=== PATIENT | male | born 1980 | race Caucasian/White ===

== ENCOUNTER 2018-03-14 08:01 | Emergency (ER) | payer MEDICAID, SELFPAY ==
[2018-03-14] VITALS (23 sets, daily range): BP systolic 103–140; BP diastolic 66–92; PULSE 73–110; RESP 14–29; TEMP 36.4; O2SAT 90–98
--- NOTE | 2018-03-14 08:10 | DI.RAD_ITS ---
SYMPTOM/DIAGNOSIS: FALL, RIGHT CP OVER RIBS 6-8 LATERAL PA AND LATERAL CHEST: 03/13/18 The heart is normal in size. The lungs are clear. The mediastinal structures and pleura appear intact. Note is made of right 5th rib fracture anteriorly and right 8th rib fracture laterally, nondisplaced, no pneumothorax seen. CONCLUSION: Normal chest.
--- NOTE | 2018-03-14 08:12 | W.ED.GENAD ---
Discharge Plan Disposition Patient Disposition: HOME Condition: Good Discharge Details Chief Complaint: Trauma Clinical Impression: Closed fracture of rib of right side Primary Care Provider: Gabriela Valerio ED Provider: [facility] Home Meds and New Rx's Prescriptions: New acetaminophen [Mapap Extra Strength] 500 MG tablet 1,000 mg PO Q6H 5 Days Qty: 60 RF: 0 lidocaine [Lidoderm] 1 PATCH patch 1 patch Topical Q24H Qty: 4 RF: 0 ibuprofen [Motrin IB] 200 MG tablet 600 mg PO Q6H 5 Days Qty: 60 RF: 0 hydrocodone-acetaminophen [[place]] 7.5-325 mg tablet 1 tab PO Q6H PRN (Reason: pain) Qty: 7 RF: 0 No Action omeprazole 20 MG capsule,delayed release(DR/EC) 20 mg PO DAILY RF: 0 sertraline 50 MG tablet 25 mg PO DAILY RF: 0 gabapentin 300 MG capsule 300 mg PO TID RF: 0 Discharge Instructions Instructions: How to Use an Incentive Spirometer (ED), Rib Fracture (ED) Additional Instructions: Please take the Tylenol, Motrin, and Lidoderm patch regularly for control of your pain. Please use the [place] only for breakthrough pain or to help sleep at night. Please do not take this with Tylenol as Fleming does have Tylenol in it. Please use the incentive spirometer as directed. If you notice any worsening of your symptoms, or any new symptoms such as vomiting, diarrhea, fever, chills, shortness of breath, chest pain, numbness, weakness, or fainting , please return immediately to the emergency department for reevaluation. Please follow up with your primary care provider as soon as possible for reassessment and reevaluation. As always, it was a pleasure participating in your medical care today. Referrals: Gabriela Valerio MD [Primary Care Provider] - Medical Decision Making This is a pleasant 38-year-old male who presents for evaluation of right rib pain. Patient was horsing around yesterday when he fell through a window roughly 2-3 feet above the ground, landed on his right ribs and suffered a small laceration to the tragus of his right ear. This happened greater than 12 hours ago. In regards to his ear there is no active bleeding at this time. Small laceration is present, however it is healing with secondary intention. Due to the duration of the symptoms will be unable to sutured at this time and will continue healing with secondary intention. Regards to his ribs he has notable tenderness on the right, over ribs 6 through 8. Bedside portable ultrasound demonstrates lung sliding bilaterally with no significant signs of pneumothorax. We will perform bedside fast exam. No abdominal pain on exam, no other pain over the patient's extremities. We will get an x-ray to rule out rib fracture. We will treat the patient's pain, and reassess. Tetanus is up-to-date. 8:48 AM Chest x-ray results demonstrate no evidence of pneumothorax, however there is evidence of a notable rib fracture on the right. Unfortunately the patient does not have complete resolution of his pain with morphine Toradol and Lidoderm patch. I have called anesthesia, and they will come and assess the patient see if you would be a good candidate for rib block. We will get an incentive spirometer for the patient. Bedside portable ultrasound for E FAST exam demonstrates no significant abnormality. I feel the patient will be a good candidate for discharge home with pain control. 9:12 AM Anesthesia came assessed the patient and performed a right-sided rib block. The patient had near complete resolution of his symptoms with this. Patient will be sent home with Tylenol, Motrin, and Lidoderm patches, as well as a prescription for just a few Fleming's for breakthrough pain as needed. I imagine he will be quite sore with his rib fracture. We did have respiratory come down and instruct the patient on incentive spirometer use, he receives as well. We discussed red flags for his to return the patient understands I have extensively reviewed the treatment plan and discharge instructions with the patient and their family. I have addressed all patient concerns at this time. The patient and family was made aware of what symptoms to monitor for that would warrant a return to the emergency department. Discussed the plan with the patient and family, they demonstrate verbal understanding and agreement with our assessment and plan at this time. E-FAST Exam type: Diagnostic Indication for exam: Blunt trauma Views obtained: hepatorenal, perisplenic, suprapubic, pericardial, R lung, L lung Findings and interpretations: all views were adequate. No abdominal free fluid or pericardial fluid seen. Normal lung sliding, normal sea shore sign, no bar code sign indicating no pneumothorax. The patient tolerated the procedure well and there were no complications. HPI General Date/Time Provider Initiated Documentation: 03/14/18 08:03. HPI Narrative: This is a 38-year-old male with no significant past medical history who presents for evaluation of right-sided rib pain. Patient states that yesterday he was having a rhonchorous event with his close friend, and ran through a window, falling roughly 3 feet to the ground, landing on his right ribs. He did cut his right ear, he initially had only minimal pain on the right side however throughout the night and today the patient's pain is notably worsened. He describes pain on his right lateral ribs, worse with breathing, worse with palpation, improved by nothing. He has not taken any Tylenol or Motrin for his symptoms. He denies any associated cough, hemoptysis, fever or chills. He did hit his ear, but denies any loss of consciousness in the initial event. He denies any back, neck, head pain, or extremity pain. He denies any associated numbness tingling or weakness. Patient states that his tetanus is up-to-date. He denies any other complaints at this time. He denies any recent surgical history, or any pertinent family history. Related Data Home Medications Medication Instructions Recorded Confirmed gabapentin 300 mg PO TID 05/02/17 03/14/18 omeprazole 20 mg PO DAILY tab-cap 06/21/17 03/14/18 sertraline 25 mg PO DAILY tab-cap 06/21/17 03/14/18 acetaminophen [Mapap Extra 1,000 mg PO Q6H 5 Days #60 tab 03/14/18 Strength] hydrocodone-acetaminophen [[place]] 1 tab PO Q6H PRN #7 tab 03/14/18 ibuprofen [Motrin Ib] 600 mg PO Q6H 5 Days #60 tab 03/14/18 lidocaine [Lidoderm] 1 patch TOPICAL Q24H #4 patch 03/14/18 Previous Rx's Medication Instructions Recorded acetaminophen [Mapap Extra 1,000 mg PO Q6H 5 Days #60 tab 03/14/18 Strength] hydrocodone-acetaminophen [[place]] 1 tab PO Q6H PRN #7 tab 03/14/18 ibuprofen [Motrin Ib] 600 mg PO Q6H 5 Days #60 tab 03/14/18 lidocaine [Lidoderm] 1 patch TOPICAL Q24H #4 patch 03/14/18 Allergies Allergy/AdvReac Type Severity Reaction Status Date / Time No Known Allergies Allergy Unverified 03/14/18 08:09 General Stated Complaint: Trauma YESSICA: 3 Review of Systems Review of Systems All systems reviewed & are unremarkable except as noted in HPI and below PFSH Social History Smoking/Tobacco Use Status: Current every day Exam Narrative Exam Narrative: 1.Const: Well-nourished, Well-developed, appearing stated age 2.Eyes: PERRL, no conjunctival injection, and symmetrical lids. 3.ENT: Atraumatic external nose. Right ear demonstrates some dried blood, and a small superficial already approximating secondary to secondary intention laceration over the tragus of the right ear. No active bleeding at this time moist MM. Neck: Symmetric, trachea midline, No thyromegaly. There is no evidence of raccoon eyes, dobson sign, CSF rhinorrhea, mastoid tenderness, cranial crepitus, hemotympanum, exophthalmos, or hyphema. Patient demonstrates intact dentition with no signs of tooth avulsion or fracture, no signs of jaw deformity, no evidence of a LeFort's fracture, with an intact palate, nose and orbital region. There is no evidence of a nasal septal hematoma. No proptosis. Jaw closes symmetrically. Airway is clear. 4.CVS: Regular rate and rhythm, Normal s1 and s2. No murmurs, carotid bruits, rubs, or gallops. Radial pulses 2+ bilaterally and symmetric. Dorsalis pedis pulses 2+ bilaterally and symmetric. 2+ capillary refill. No evidence of distant heart sounds. No extremity edema. No evidence of gross hemorrhage. 5.RESP: Airway clear, no obstructions. No abrasions or ecchymosis. Chest movement symmetric with respirations.Trachea midline. No crepitus. No step offs. No paradoxical movements. Lungs are clear to auscultation bilaterally except for mild amount of rhonchi on the right. No wheezing or stridor. Breath sounds otherwise symmetric. No Sucking chest wounds. Minimal bruising over the right chest, minor excoriation in the right axilla. Notable reproducible tenderness on the right ribs, as well as minimal tenderness on the left ribs. Rib tenderness is located over the 6 through 8 rib on the right. No clinical evidence of significant chest trauma. 6.GI: Soft, nondistended, nontender. Bowel tones normoactive. No masses or organomegaly. No ecchymosis or abrasions. No periumbilical ecchymosis or seatbelt sign. No flank or CVA tenderness. No clinical signs of significant trauma. No clinical evidence of significant abdominal trauma. 7.MSK: Normocephalic/Atraumatic, Extremities w/o deformity or ttp No cyanosis or clubbing, Normal movement of all extremities 8.Skin: Warm, Dry. No rashes or lesions. 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 Sensation grossly intact, no focal neurologic deficits. 10.Psych: (AAO) x3. Appropriate mood and affect Course Vital Signs Temperature 36.4 C L 03/14/18 08:05 Pulse 106 H 03/14/18 08:05 Respiratory Rate 21 03/14/18 08:05 Blood Pressure 140/92 H 03/14/18 08:05 Pulse Oximetry 97 03/14/18 08:05 Temperature 36.4 C L 03/14/18 08:05 Temperature Source Temporal Artery Scan 03/14/18 08:05 Pulse 106 H 03/14/18 08:05 Respiratory Rate 21 03/14/18 08:05 Respiratory Effort Tripod 03/14/18 08:07 Blood Pressure 140/92 H 03/14/18 08:05 Blood Pressure Position Sitting 03/14/18 08:05 Pulse Oximetry 97 03/14/18 08:05 Oxygen Delivery Method Room Air 03/14/18 08:05 Oxygen Flow Rate 0 03/14/18 08:05 Pain Level 10 03/14/18 08:05
[2018-03-14] MEDS: Ketorolac 30 MG/ML VIAL IM (08:17)
[2018-03-14] MEDS: MORPHine 10 MG/ML VIAL 4 MG IM (08:17)
[2018-03-14] MEDS: Lidocaine 5% Patch 1 PATCH TP (08:18)
[2018-03-14] MEDS: Acetaminophen 500 MG TAB 1000 MG PO (08:18)
--- NOTE | 2018-03-14 08:24 | ED.GENADUL_ITS ---
Discharge Plan Disposition Patient Disposition: HOME Condition: Good Discharge Details Chief Complaint: Trauma Clinical Impression: Closed fracture of rib of right side Primary Care Provider: Gabriela Valerio ED Provider: [place] [facility] Home Meds and New Rx's Prescriptions: New acetaminophen [Mapap Extra Strength] 500 MG tablet 1,000 mg PO Q6H 5 Days Qty: 60 RF: 0 lidocaine [Lidoderm] 1 PATCH patch 1 patch Topical Q24H Qty: 4 RF: 0 ibuprofen [Motrin IB] 200 MG tablet 600 mg PO Q6H 5 Days Qty: 60 RF: 0 hydrocodone-acetaminophen [[place]] 7.5-325 mg tablet 1 tab PO Q6H PRN (Reason: pain) Qty: 7 RF: 0 No Action omeprazole 20 MG capsule,delayed release(DR/EC) 20 mg PO DAILY RF: 0 sertraline 50 MG tablet 25 mg PO DAILY RF: 0 gabapentin 300 MG capsule 300 mg PO TID RF: 0 Discharge Instructions Instructions: How to Use an Incentive Spirometer (ED), Rib Fracture (ED) Additional Instructions: Please take the Tylenol, Motrin, and Lidoderm patch regularly for control of your pain. Please use the [place] only for breakthrough pain or to help sleep at night. Please do not take this with Tylenol as [place] does have Tylenol in it. Please use the incentive spirometer as directed. If you notice any worsening of your symptoms, or any new symptoms such as vomiting, diarrhea, fever, chills , shortness of breath, chest pain, numbness, weakness, or fainting , please return immediately to the emergency department for reevaluation. Please follow up with your primary care provider as soon as possible for reassessment and reevaluation. As always, it was a pleasure participating in your medical care today. Referrals: Gabriela Valerio MD [Primary Care Provider] - Medical Decision Making This is a pleasant 38-year-old male who presents for evaluation of right rib pain. Patient was horsing around yesterday when he fell through a window roughly 2-3 feet above the ground, landed on his right ribs and suffered a small laceration to the tragus of his right ear. This happened greater than 12 hours ago. In regards to his ear there is no active bleeding at this time. Small laceration is present, however it is healing with secondary intention. Due to the duration of the symptoms will be unable to sutured at this time and will continue healing with secondary intention. Regards to his ribs he has notable tenderness on the right, over ribs 6 through 8. Bedside portable ultrasound demonstrates lung sliding bilaterally with no significant signs of pneumothorax. We will perform bedside fast exam. No abdominal pain on exam, no other pain over the patient's extremities. We will get an x-ray to rule out rib fracture. We will treat the patient's pain, and reassess. Tetanus is up-to -date. 8:48 AM Chest x-ray results demonstrate no evidence of pneumothorax, however there is evidence of a notable rib fracture on the right. Unfortunately the patient does not have complete resolution of his pain with morphine Toradol and Lidoderm patch. I have called anesthesia, and they will come and assess the patient see if you would be a good candidate for rib block. We will get an incentive spirometer for the patient. Bedside portable ultrasound for E FAST exam demonstrates no significant abnormality. I feel the patient will be a good candidate for discharge home with pain control. 9:12 AM Anesthesia came assessed the patient and performed a right-sided rib block. The patient had near complete resolution of his symptoms with this. Patient will be sent home with Tylenol, Motrin, and Lidoderm patches, as well as a prescription for just a few [place]'s for breakthrough pain as needed. I imagine he will be quite sore with his rib fracture. We did have respiratory come down and instruct the patient on incentive spirometer use, he receives as well. We discussed red flags for his to return the patient understands I have extensively reviewed the treatment plan and discharge instructions with the patient and their family. I have addressed all patient concerns at this time. The patient and family was made aware of what symptoms to monitor for that would warrant a return to the emergency department. Discussed the plan with the patient and family, they demonstrate verbal understanding and agreement with our assessment and plan at this time. E-FAST Exam type: Diagnostic Indication for exam: Blunt trauma Views obtained: hepatorenal, perisplenic, suprapubic, pericardial, R lung, L lung Findings and interpretations: all views were adequate. No abdominal free fluid or pericardial fluid seen. Normal lung sliding, normal sea shore sign, no bar code sign indicating no pneumothorax. The patient tolerated the procedure well and there were no complications. HPI General Date/Time Provider Initiated Documentation: 03/14/18 08:03 . HPI Narrative: This is a 38-year-old male with no significant past medical history who presents for evaluation of right-sided rib pain. Patient states that yesterday he was having a rhonchorous event with his close friend, and ran through a window, falling roughly 3 feet to the ground, landing on his right ribs. He did cut his right ear, he initially had only minimal pain on the right side however throughout the night and today the patient's pain is notably worsened. He describes pain on his right lateral ribs, worse with breathing, worse with palpation, improved by nothing. He has not taken any Tylenol or Motrin for his symptoms. He denies any associated cough, hemoptysis , fever or chills. He did hit his ear, but denies any loss of consciousness in the initial event. He denies any back, neck, head pain, or extremity pain. He denies any associated numbness tingling or weakness. Patient states that his tetanus is up-to-date. He denies any other complaints at this time. He denies any recent surgical history, or any pertinent family history. Related Data Home Medications Medication Instructions Recorded Confirmed gabapentin 300 mg PO TID 05/02/17 03/14/18 omeprazole 20 mg PO DAILY tab-cap 06/21/17 03/14/18 sertraline 25 mg PO DAILY tab-cap 06/21/17 03/14/18 acetaminophen [Mapap Extra 1,000 mg PO Q6H 5 Days #60 tab 03/14/18 Strength] hydrocodone-acetaminophen [[place]] 1 tab PO Q6H PRN #7 tab 03/14/18 ibuprofen [Motrin Ib] 600 mg PO Q6H 5 Days #60 tab 03/14/18 lidocaine [Lidoderm] 1 patch TOPICAL Q24H #4 patch 03/14/18 Previous Rx's Medication Instructions Recorded acetaminophen [Mapap Extra 1,000 mg PO Q6H 5 Days #60 tab 03/14/18 Strength] hydrocodone-acetaminophen [[place]] 1 tab PO Q6H PRN #7 tab 03/14/18 ibuprofen [Motrin Ib] 600 mg PO Q6H 5 Days #60 tab 03/14/18 lidocaine [Lidoderm] 1 patch TOPICAL Q24H #4 patch 03/14/18 Allergies Allergy/AdvReac Type Severity Reaction Status Date / Time No Known Allergies Allergy Unverified 03/14/18 08:09 General Stated Complaint: Trauma YESSICA: 3 Review of Systems Review of Systems All systems reviewed & are unremarkable except as noted in HPI and below PFSH Social History Smoking/Tobacco Use Status: Current every day Exam Narrative Exam Narrative: 1.Const: Well-nourished, Well-developed, appearing stated age 2.Eyes: PERRL, no conjunctival injection, and symmetrical lids. 3.ENT: Atraumatic external nose. Right ear demonstrates some dried blood, and a small superficial already approximating secondary to secondary intention laceration over the tragus of the right ear. No active bleeding at this time moist MM. Neck: Symmetric, trachea midline, No thyromegaly. There is no evidence of raccoon eyes, dobson sign, CSF rhinorrhea, mastoid tenderness, cranial crepitus, hemotympanum, exophthalmos, or hyphema. Patient demonstrates intact dentition with no signs of tooth avulsion or fracture, no signs of jaw deformity, no evidence of a LeFort's fracture, with an intact palate, nose and orbital region. There is no evidence of a nasal septal hematoma. No proptosis. Jaw closes symmetrically. Airway is clear. 4.CVS: Regular rate and rhythm, Normal s1 and s2. No murmurs, carotid bruits, rubs, or gallops. Radial pulses 2+ bilaterally and symmetric. Dorsalis pedis pulses 2+ bilaterally and symmetric. 2+ capillary refill. No evidence of distant heart sounds. No extremity edema. No evidence of gross hemorrhage. 5.RESP: Airway clear, no obstructions. No abrasions or ecchymosis. Chest movement symmetric with respirations.Trachea midline. No crepitus. No step offs. No paradoxical movements. Lungs are clear to auscultation bilaterally except for mild amount of rhonchi on the right. No wheezing or stridor. Breath sounds otherwise symmetric. No Sucking chest wounds. Minimal bruising over the right chest, minor excoriation in the right axilla. Notable reproducible tenderness on the right ribs, as well as minimal tenderness on the left ribs. Rib tenderness is located over the 6 through 8 rib on the right. No clinical evidence of significant chest trauma. 6.GI: Soft, nondistended, nontender. Bowel tones normoactive. No masses or organomegaly. No ecchymosis or abrasions. No periumbilical ecchymosis or seatbelt sign. No flank or CVA tenderness. No clinical signs of significant trauma. No clinical evidence of significant abdominal trauma. 7.MSK: Normocephalic/Atraumatic, Extremities w/o deformity or ttp No cyanosis or clubbing, Normal movement of all extremities 8.Skin: Warm, Dry. No rashes or lesions. 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 Sensation grossly intact, no focal neurologic deficits. 10.Psych: (AAO) x3. Appropriate mood and affect Course Vital Signs Temperature 36.4 C L 03/14/18 08:05 Pulse 106 H 03/14/18 08:05 Respiratory Rate 21 03/14/18 08:05 Blood Pressure 140/92 H 03/14/18 08:05 Pulse Oximetry 97 03/14/18 08:05 Temperature 36.4 C L 03/14/18 08:05 Temperature Source Temporal Artery Scan 03/14/18 08:05 Pulse 106 H 03/14/18 08:05 Respiratory Rate 21 03/14/18 08:05 Respiratory Effort Tripod 03/14/18 08:07 Blood Pressure 140/92 H 03/14/18 08:05 Blood Pressure Position Sitting 03/14/18 08:05 Pulse Oximetry 97 03/14/18 08:05 Oxygen Delivery Method Room Air 03/14/18 08:05 Oxygen Flow Rate 0 03/14/18 08:05 Pain Level 10 03/14/18 08:05
[2018-03-14] MEDS: Bupivacaine 0.25% Pres-Free 30 ML VIAL (08:49)
[2018-03-14] MEDS: Bupivacaine LIPOSOME/PF 133 MG/10 ML VIAL IJ (09:00)
== END 2018-03-14 09:58 | disposition home or self-care (01) ==
LOC: ER 10:05
PROVIDERS: Emergency Provider Student in an Organized Health Care Education/Training Program; PCP Family Medicine
DX: S22.31XA Fracture of one rib, right side, initial encounter for closed fracture (principal); S01.311A Laceration without foreign body of right ear, initial encounter; W13.4XXA Fall from, out of or through window, initial encounter
CPT/HCPCS: 64450; 76942; 96372; 99284; 71046; J1885; J2270

== ENCOUNTER 2018-04-18 15:11 | Emergency (ER) | payer MEDICAID, SELFPAY ==
[2018-04-18 15:18] VITALS: BP 127/85; PULSE 105; RESP 16; TEMP 36.5; O2SAT 98
--- NOTE | 2018-04-18 15:46 | W.ED.GENAD ---
Discharge Plan Disposition Patient Disposition: HOME Condition: Fair Discharge Details Chief Complaint: Chest/Rib Clinical Impression: URI (upper respiratory infection) Primary Care Provider: Gabriela Valerio ED Provider: Leandra Raymundo Home Meds and New Rx's Prescriptions: New acetaminophen [Tylenol Extra Strength] 500 mg tablet 500 mg PO QID PRN (Reason: pain) Qty: 20 RF: 0 Continued omeprazole 20 MG capsule,delayed release(DR/EC) 20 mg PO DAILY RF: 0 sertraline 50 MG tablet 25 mg PO DAILY RF: 0 gabapentin 300 MG capsule 300 mg PO TID RF: 0 Discharge Instructions Instructions: Upper Respiratory Infection (ED) Additional Instructions: Encourage hydration. Encourage deep breathing. Tylenol and/or Motrin as needed for discomfort. If you develop shortness of breath, difficulty breathing or other new/worsening symptoms please seek care urgently once again. Follow up with primary care in one week with any new/worsening symptoms. Referrals: Gabriela Valerio MD [Primary Care Provider] - Medical Decision Making Patient is a 38 year old male presenting today with c/c of cough. Patient was diagnosed with right sided rib fx after trauma 4 weeks ago. States that overall the pain had greatly improved. However, over the past 3 days he has noted some returned discomfort, rates discomfort at 2/10 with cough. Cough is non productive. States he has had mild runny nose, no sinus pain, otalgia, sore throat. Denies fevers/chills at home. On exam, patient has reproducible pain over area of fracture on righ tside of chest wall. No skin changes. Lungs are clear, no wheezes/rales/rhonchi. Patient breahting comfortably. Advised no evidence of pneumonia at this time. Enocuraged deep breathing and hydration. Advised tylenol and/or motrin as needed for discomfort. discussed new/worsening sytmpsoms and when to seek care urgently once again. Advised against smoking. He is requesting prescription for Tylenol. will f/u with PCP in one week if not improving. All of his quesitons and concerns were addressed, he is in agreement iwht this plan. HPI General Mode of arrival: ambulatory. Date/Time Provider Initiated Documentation: 04/18/18 15:44. Limitations to Documentation: no limitations. Information obtained by: patient. History of Present Illness 38 year old M presents to the emergency department with the chief complaint of cough, described as mild, with intensity rated at 2. Quality is described as aching, and is localized to the chest. Patient reports no radiation. Patient started experiencing this day(s) and it has been constant. No relieving factors improve symptom(s), Other factors that worsen symptoms (coughing) . Patient notes cough; denies chest pain, diaphoresis, fever/chills, headaches, loss of appetite, nausea/vomiting, rash, shortness of breath and syncope. Patient did receive the following treatments prior to arrival, none Related Data Home Medications Medication Instructions Recorded Confirmed gabapentin 300 mg PO TID 05/02/17 04/18/18 omeprazole 20 mg PO DAILY tab-cap 06/21/17 04/18/18 sertraline 25 mg PO DAILY tab-cap 06/21/17 04/18/18 acetaminophen [Tylenol Extra 500 mg PO QID PRN #20 tab 04/18/18 Strength] Previous Rx's Medication Instructions Recorded acetaminophen [Tylenol Extra 500 mg PO QID PRN #20 tab 04/18/18 Strength] Allergies Allergy/AdvReac Type Severity Reaction Status Date / Time No Known Allergies Allergy Unverified 04/18/18 15:25 General Stated Complaint: Chest/Rib YESSICA: 3 Review of Systems Constitutional Reports as per HPI and Denies headache(s) Eyes Reports as per HPI, Denies eye discharge and Denies irritation ENT Reports as per HPI, Denies abnormal hearing, Denies dizziness, Denies ear discharge, Denies otalgia, Denies headache(s), Reports nasal congestion, Reports nasal discharge, Denies sinus pain, Denies sinus pressure, Denies sore throat and Denies throat swelling Cardiovascular Reports as per HPI, Reports chest pain (chest wall discomfort over area of rib fracture, pain only with cough), Denies palpitations, Denies dyspnea and Denies dyspnea on exertion Respiratory Reports as per HPI, Reports cough, Denies dyspnea and Denies dyspnea on exertion Gastrointestinal Reports as per HPI, Denies abdominal pain, Denies change in bowel habits, Denies nausea and Denies vomiting Integumentary/Breasts Reports as per HPI and Denies rash Neurologic Denies abnormal hearing, Denies dizziness and Denies headache(s) Endocrine Denies palpitations Allergic/Immunologic Denies throat swelling [facility] Social History (Reviewed 04/18/18 @ 16:26 by JACQUE Hilario Smoking/Tobacco Use Status: Current every day Exam Const General: cooperative, healthy appearing, comfortable, no acute distress, well developed and well groomed Nutritional Appearance: average body habitus and well nourished Orientation: alert and awake [facility] Head: normal to inspection, normocephalic and atraumatic Ears: hearing grossly normal bilaterally, external ears normal and TM's normal bilaterally General nose exam: external nose normal and nares normal Face and sinus: normal facial exam, sinuses nontender and face symmetric Mouth: oral mucosae normal, lip normal, tongue normal, oropharynx normal and moist mucous membranes Teeth and gingiva: dentition normal Throat: posterior oropharynx normal, tonsils normal and uvula midline Eyes General: appearance normal, both eyes and all related structures Neck Neck: normal visual inspection, full ROM, no lymphadenopathy and no meningeal signs Resp Effort & Inspection: normal respiratory effort, able to speak in complete sentences and no respiratory distress Auscultation: clear to auscultation bilaterally, no rales, no rhonchi and no wheezes Cardio Rate: regular rate Rhythm: regular rhythm Heart Sounds: S1 normal and S2 normal Skin General skin exam: no rashes or lesions noted Neuro General: alert and awake Cognition: normal cognition Speech: speech normal Gait: normal gait Psych Appearance: grossly normal and well kempt Mental Status: mental status grossly normal Speech and Movement: speech and movement normal Course Vital Signs Temperature 36.5 C 04/18/18 15:18 Pulse 105 H 04/18/18 15:18 Respiratory Rate 16 04/18/18 15:18 Blood Pressure 127/85 04/18/18 15:18 Pulse Oximetry 98 04/18/18 15:18 Temperature 36.5 C 04/18/18 15:18 Temperature Source Temporal Artery Scan 04/18/18 15:18 Pulse 105 H 04/18/18 15:18 Respiratory Rate 16 04/18/18 15:18 Respiratory Effort Non-Labored 04/18/18 15:38 Respiratory Depth Normal 04/18/18 15:38 Respiratory Pattern Normal 04/18/18 15:38 Blood Pressure 127/85 04/18/18 15:18 Blood Pressure Position Sitting 04/18/18 15:18 Pulse Oximetry 98 04/18/18 15:18 Oxygen Delivery Method Room Air 04/18/18 15:18 Oxygen Flow Rate 0 04/18/18 15:18 Pain Level 1 04/18/18 15:38
--- NOTE | 2018-04-18 16:23 | ED.GENADUL_ITS ---
Discharge Plan Disposition Patient Disposition: HOME Condition: Fair Discharge Details Chief Complaint: Chest/Rib Clinical Impression: URI (upper respiratory infection) Primary Care Provider: Gabriela Valerio ED Provider: eLandra Raymundo Home Meds and New Rx's Prescriptions: New acetaminophen [Tylenol Extra Strength] 500 mg tablet 500 mg PO QID PRN (Reason: pain) Qty: 20 RF: 0 Continued omeprazole 20 MG capsule,delayed release(DR/EC) 20 mg PO DAILY RF: 0 sertraline 50 MG tablet 25 mg PO DAILY RF: 0 gabapentin 300 MG capsule 300 mg PO TID RF: 0 Discharge Instructions Instructions: Upper Respiratory Infection (ED) Additional Instructions: Encourage hydration. Encourage deep breathing. Tylenol and/or Motrin as needed for discomfort. If you develop shortness of breath, difficulty breathing or other new/worsening symptoms please seek care urgently once again. Follow up with primary care in one week with any new/worsening symptoms. Referrals: Gabriela Valerio MD [Primary Care Provider] - Medical Decision Making Patient is a 38 year old male presenting today with c/c of cough. Patient was diagnosed with right sided rib fx after trauma 4 weeks ago. States that overall the pain had greatly improved. However, over the past 3 days he has noted some returned discomfort, rates discomfort at 2/10 with cough. Cough is non productive. States he has had mild runny nose, no sinus pain, otalgia, sore throat. Denies fevers/chills at home. On exam, patient has reproducible pain over area of fracture on righ tside of chest wall. No skin changes. Lungs are clear, no wheezes/rales/rhonchi. Patient breahting comfortably. Advised no evidence of pneumonia at this time. Enocuraged deep breathing and hydration. Advised tylenol and/or motrin as needed for discomfort. discussed new/worsening sytmpsoms and when to seek care urgently once again. Advised against smoking. He is requesting prescription for Tylenol. will f/u with PCP in one week if not improving. All of his quesitons and concerns were addressed, he is in agreement iwht this plan. HPI General Mode of arrival: ambulatory . Date/Time Provider Initiated Documentation: 04/18/18 15:44 . Limitations to Documentation: no limitations . Information obtained by: patient . History of Present Illness 38 year old M presents to the emergency department with the chief complaint of cough, described as mild, with intensity rated at 2. Quality is described as aching, and is localized to the chest. Patient reports no radiation. Patient started experiencing this day(s) and it has been constant. No relieving factors improve symptom(s), Other factors that worsen symptoms (coughing) . Patient notes cough; denies chest pain, diaphoresis, fever/chills, headaches, loss of appetite, nausea/vomiting, rash, shortness of breath and syncope. Patient did receive the following treatments prior to arrival, none Related Data Home Medications Medication Instructions Recorded Confirmed gabapentin 300 mg PO TID 05/02/17 04/18/18 omeprazole 20 mg PO DAILY tab-cap 06/21/17 04/18/18 sertraline 25 mg PO DAILY tab-cap 06/21/17 04/18/18 acetaminophen [Tylenol Extra 500 mg PO QID PRN #20 tab 04/18/18 Strength] Previous Rx's Medication Instructions Recorded acetaminophen [Tylenol Extra 500 mg PO QID PRN #20 tab 04/18/18 Strength] Allergies Allergy/AdvReac Type Severity Reaction Status Date / Time No Known Allergies Allergy Unverified 04/18/18 15:25 General Stated Complaint: Chest/Rib YESSICA: 3 Review of Systems Constitutional Reports as per HPI and Denies headache(s) Eyes Reports as per HPI, Denies eye discharge and Denies irritation ENT Reports as per HPI, Denies abnormal hearing, Denies dizziness, Denies ear discharge, Denies otalgia, Denies headache(s), Reports nasal congestion, Reports nasal discharge, Denies sinus pain, Denies sinus pressure, Denies sore throat and Denies throat swelling Cardiovascular Reports as per HPI, Reports chest pain (chest wall discomfort over area of rib fracture, pain only with cough), Denies palpitations, Denies dyspnea and Denies dyspnea on exertion Respiratory Reports as per HPI, Reports cough, Denies dyspnea and Denies dyspnea on exertion Gastrointestinal Reports as per HPI, Denies abdominal pain, Denies change in bowel habits, Denies nausea and Denies vomiting Integumentary/Breasts Reports as per HPI and Denies rash Neurologic Denies abnormal hearing, Denies dizziness and Denies headache(s) Endocrine Denies palpitations Allergic/Immunologic Denies throat swelling [facility] Social History (Reviewed 04/18/18 @ 16:26 by JACQUE Hilario Smoking/Tobacco Use Status: Current every day Exam Const General: cooperative, healthy appearing, comfortable, no acute distress, well developed and well groomed Nutritional Appearance: average body habitus and well nourished Orientation: alert and awake [facility] Head: normal to inspection, normocephalic and atraumatic Ears: hearing grossly normal bilaterally, external ears normal and TM's normal bilaterally General nose exam: external nose normal and nares normal Face and sinus: normal facial exam, sinuses nontender and face symmetric Mouth: oral mucosae normal, lip normal, tongue normal, oropharynx normal and moist mucous membranes Teeth and gingiva: dentition normal Throat: posterior oropharynx normal, tonsils normal and uvula midline Eyes General: appearance normal, both eyes and all related structures Neck Neck: normal visual inspection, full ROM, no lymphadenopathy and no meningeal signs Resp Effort & Inspection: normal respiratory effort, able to speak in complete sentences and no respiratory distress Auscultation: clear to auscultation bilaterally, no rales, no rhonchi and no wheezes Cardio Rate: regular rate Rhythm: regular rhythm Heart Sounds: S1 normal and S2 normal Skin General skin exam: no rashes or lesions noted Neuro General: alert and awake Cognition: normal cognition Speech: speech normal Gait: normal gait Psych Appearance: grossly normal and well kempt Mental Status: mental status grossly normal Speech and Movement: speech and movement normal Course Vital Signs Temperature 36.5 C 04/18/18 15:18 Pulse 105 H 04/18/18 15:18 Respiratory Rate 16 04/18/18 15:18 Blood Pressure 127/85 04/18/18 15:18 Pulse Oximetry 98 04/18/18 15:18 Temperature 36.5 C 04/18/18 15:18 Temperature Source Temporal Artery Scan 04/18/18 15:18 Pulse 105 H 04/18/18 15:18 Respiratory Rate 16 04/18/18 15:18 Respiratory Effort Non-Labored 04/18/18 15:38 Respiratory Depth Normal 04/18/18 15:38 Respiratory Pattern Normal 04/18/18 15:38 Blood Pressure 127/85 04/18/18 15:18 Blood Pressure Position Sitting 04/18/18 15:18 Pulse Oximetry 98 04/18/18 15:18 Oxygen Delivery Method Room Air 04/18/18 15:18 Oxygen Flow Rate 0 04/18/18 15:18 Pain Level 1 04/18/18 15:38
== END 2018-04-18 16:03 | disposition home or self-care (01) ==
PROVIDERS: Emergency Provider Physician Assistant; PCP Family Medicine
DX: J06.9 Acute upper respiratory infection, unspecified (principal); F17.210 Nicotine dependence, cigarettes, uncomplicated
CPT/HCPCS: 99283

== ENCOUNTER 2018-10-17 13:43 | Outpatient (REF) | payer MEDICAID, SELFPAY ==
[2018-10-17 19:11] LABS: HGB 16.7 g/dL (13.5-17.5); Mean Corp. HGB Concentration 33.4 g/dL (32.0-36.0); Mean Corpuscular Hemoglobin 32.3 pg (27.0-33.0); Mean Corpuscular Volume 96.7 fL (80-95); Mean Platelet Volume 11.6 fL (8.0-11.0); Platelet Count 218 x1000/uL (130-400); RBC 5.17 m/cumm (4.50-6.00); RBC Distribution Width 13.9 % (11.8-14.1); White Blood Cell Count 5.95 k/cumm (4.4-10.8)
[2018-10-17 19:33] LABS: ALT 34 U/L (12-78); AST 17 U/L (15-37); Albumin 3.8 g/dL (3.4-5.0); Alkaline Phosphatase 109 U/L (46-116); Anion Gap 9.7 mmol/L (3-11); BUN 9 mg/dL (7-18); Bilirubin, Total 0.3 mg/dL (0.2-1.0); CO2 27.3 mmol/L (21.0-32.0); CREATININE 0.94 mg/dL (0.70-1.30); Calcium 9.8 mg/dL (8.5-10.1); Chloride 105 mmol/L (98-107); Glucose 134 mg/dL (70-100); Sodium 142 mmol/L (136-145); TSH (W/Ref FT4) 0.86 uIU/mL (0.358-3.74); Total Protein 7.7 g/dL (6.4-8.2)
[2018-10-17 20:18] LABS: Hemoglobin A1C 5.2 % (4.5-6.2)
== END 2018-10-17 14:03 ==
LOC: NCHCN 13:43
PROVIDERS: PCP Family Medicine; Visit Provider Family Medicine
DX: R56.9 Unspecified convulsions (principal); G47.00 Insomnia, unspecified; E66.9 Obesity, unspecified
CPT/HCPCS: 80053; 85027; 83036; 84443

== ENCOUNTER 2019-02-18 01:24 | Outpatient (CLI) | payer MEDICAID, SELFPAY ==
--- NOTE | 2019-02-18 14:46 | DI.RAD_ITS ---
EXAM: XR SHOULDER LT COMPLETE 2+V INDICATION: LT SHOULDER PAIN, M25.512, FELL 6 WEEKS AGO, LIMITED RANGE OF MOTION. COMPARISON: XR CHEST 2V PA LATERAL from 03/14/2018 TECHNIQUE: 2D digital imaging was performed. FINDINGS: No fracture or dislocation is seen. AC joint is not widened. There are no significant degenerative changes. The visualized portions of the left ribs appear intact. IMPRESSION: Negative left shoulder.
== END 2019-02-18 01:44 ==
PROVIDERS: PCP Family Medicine; Visit Provider Family Medicine
DX: M25.512 Pain in left shoulder (principal); M25.812 Other specified joint disorders, left shoulder
CPT/HCPCS: 73030

== ENCOUNTER 2020-02-16 16:11 | Outpatient (REF) | payer MEDICAID, SELFPAY ==
[2020-02-16 18:02] LABS: HCT 51.6 % (40.0-50.0); HGB 17.9 g/dL (13.5-17.5); MCH 35.2 pg (27.0-33.0); MCHC 34.7 % (32.0-36.0); MCV 101.6 fL (80-95); MPV 10.8 fL (8.0-11.0); Platelet Count 189 10^3/uL (130-400); RBC 5.08 10^6/uL (4.36-5.78); RDW 12.4 % (11.8-14.1); RDW-SD 47.2 fL; WBC 8.67 10^3/uL (4.4-10.8)
[2020-02-16 18:12] LABS: ALT 121 U/L (16-63); AST 121 U/L (15-37); Albumin 3.9 g/dL (3.4-5.0); Alkaline Phosphatase 130 U/L (46-116); Anion Gap 12.5 mmol/L (3-11); BUN 8 mg/dL (7-18); Bilirubin, Total 0.4 mg/dL (0.2-1.0); CO2 22.5 mmol/L (21.0-32.0); CREATININE 0.99 mg/dL (0.70-1.30); Calcium 9.4 mg/dL (8.5-10.1); Chloride 104 mmol/L (98-107); Glucose 98 mg/dL (74-106); Sodium 139 mmol/L (136-145); Total Protein 8.1 g/dL (6.4-8.2)
[2020-02-16 19:09] LABS: Bilirubin Small (Negative); Blood Negative (Negative); Clarity Clear (Clear); Glucose Negative (Negative); Ketones Negative (Negative); Leukocyte Esterase Negative (Negative); Nitrite Negative (Negative); Specific Gravity >= 1.030 (1.005-1.025); Urobilinogen 0.2 EU/dL (Up TO 0.2); pH 5.5 (5-8)
[2020-02-16 19:27] LABS: Bacteria Negative HPF (Negative); C & S Indicated? No; Casts 3-5 Hyaline LPF (Negative); Crystals Few Calcium Oxalate HPF (Negative); Epithelial Cells Rare HPF (Negative); Mucus Moderate (Negative); RBC 0-2 HPF (0-2); WBC 0-2 HPF (0-5)
== END 2020-02-16 16:31 ==
LOC: NCHCN 16:11
PROVIDERS: PCP Family Medicine; Visit Provider Family Medicine
DX: R31.9 Hematuria, unspecified (principal); F10.259 Alcohol dependence with alcohol-induced psychotic disorder, unspecified
CPT/HCPCS: 80053; 85027; 81003; 81015

== ENCOUNTER 2020-07-04 15:16 | Emergency (ER) | payer MEDICAID, SELFPAY ==
[2020-07-04] VITALS (17 sets, daily range): BP systolic 133–142; BP diastolic 80–88; PULSE 104–118; RESP 12–26; TEMP 36.9–38.1; O2SAT 93–109
--- NOTE | 2020-07-04 15:15 | RT.EKG_ITS ---
APPROVED REPORT Exam: Resting ECG Patient Location: E HR:111 bpm ECG Measurements Heart Rate 111 AXIS AZ 134 P 87 QRSd 99 QRS 60 QT 347 T 57 QTc 472 Conclusion Sinus tachycardia...rate> 99 Probable left atrial enlargement...P >50mS, <-0.10mV V1
--- NOTE | 2020-07-04 15:34 | ED.GENADUL_ITS ---
Discharge Plan Disposition Patient Disposition: AGAINST MEDICAL ADVICE Condition: Serious Discharge Details Clinical Impression: Hypokalemia, Abdominal pain, Hepatitis Primary Care Provider: Gabriela Valerio ED Provider: Harrison Soto Home Meds and New Rx's Prescriptions: New ondansetron 4 mg tablet,disintegrating 4 mg PO Q8H PRN (Reason: nausea and vomiting) Qty: 30 RF: 0 Continued sertraline 50 mg tablet 50 mg PO DAILY RF: 0 metoprolol succinate 50 mg tablet extended release 24 hr 50 mg PO DAILY RF: 0 naltrexone 50 mg tablet 50 mg PO DAILY RF: 0 omeprazole 40 mg capsule,delayed release(DR/EC) 40 mg PO DAILY RF: 0 trazodone 150 mg tablet 150 mg PO HS RF: 0 betamethasone dipropionate 0.05 % cream 1 applic TOPICAL PRN PRNRF: 0 bupropion HCl 150 mg tablet extended release 24 hr 150 mg PO DAILY RF: 0 Discharge Instructions Instructions: Hypokalemia (ED) Additional Instructions: Your blood work showed your liver function tests are elevated indicating damage to your liver likely from alcohol use. Trying to refrain from alcohol use will help prevent this from progressing to liver failure follow up with your primary care provider as soon as possible if you have severe worsening pain, persistent vomit or feel more ill return to the emergency department Medical Decision Making 40 yo male who has a hx of alcoholism and states he has 2-3 beers a day, has had 2 today, comes in with complaints of 3 weeks of n/v and upper abdominal pain and noticed blood in his urine. He denies ever having pain like this before and denies chest pain, fevers, chills, and denies drug use. HE has pain in the upper abdomen both right and luq tenderness without guarding or rebound. He is noted to have a distended abdomen on exam with no peritoneal findings. He does have scleral icterus in both eyes. He is caox4 with clear speech and no focal deficits. I suspect he has cirrhosis and alcoholic hepatitis, will obtain labs and ct to evaluate for possible cholecystitis vs sbo vs ascites. pt's labs remarkable for elevated lfts and bilirubin, low potassium, elevated lactate and now has a fever which I suspect is from the alcoholic hepatitis. CT imaging pending ct shows possible pancolitis and trace ascites and hepatomegaly. Discussed these findings and strongly recommended admission for monitoring and possible antibiotics for the colitis and fever. He currently is caox4 with clear speech and is clinically sober and has capacity to make his own decisions. He is currently declining to be admitted to the hospital. He understands the risks of leaving including possible and permanent lifelong disability requiring constant care from others and he understands this and declines to stay and is choosing to leave against my medical advise. He also declines to give me permission to discuss findings with his or anyone else. He understands he can return if he changes his mind at any time and if he doesn't return to follow up with his pcp as soon as possible Differential Diagnosis Differential Diagnosis: cirrhosis, hepatitis, pancreatitis, cholecystitis Imaging Data Radiologic Study: Attestation: I personally reviewed and interpreted this imaging study as follows: Imaging: CT Scan Radiologist's impression: IMPRESSION: 1. Diffuse inner mucosal thickening of colon might reflect mild pancolitis. 2. No stenosis in the abdominal aorta, SMA, celiac trunk inferior mesenteric arteries. 3. Trace ascites which could be reactive. 4. There is mild edema of the gastric antrum, correlate with signs of gastritis. 5. Hepatomegaly with diffuse hepatic steatosis or steatohepatitis. Lab Data Lab results reviewed: Yes I reviewed the patient's lab results. ECG Data Attestation: I personally reviewed and interpreted this ECG (s) as follows: Prior ECG tracings: not available for review Interpretation: sinus tachycardia, rate of 111, pr 134, qtc 472 HPI General Mode of arrival: ambulatory . Date/Time Provider Initiated Documentation: 07/04/20 15:27 . Limitations to Documentation: no limitations . Information obtained by: patient . History of Present Illness 40 year old M presents to the emergency department with the chief complaint of abdominal pain, described as moderate, Quality is described as aching and sharp, and is localized to the abdomen. Patient started experiencing this week(s) (3) and it has been constant. No relieving factors improve symptom(s), No exacerbating factors reported . Patient notes nausea/vomiting. Patient did receive the following treatments prior to arrival, none Related Data Home Medications Medication Instructions Recorded Confirmed sertraline 50 mg tablet 50 mg PO DAILY tab-cap 08/28/18 07/04/20 betamethasone dipropionate 1 applic TOPICAL PRN PRN 07/04/20 07/04/20 bupropion HCl 150 mg PO DAILY 07/04/20 07/04/20 metoprolol succinate 50 mg PO DAILY 07/04/20 07/04/20 naltrexone 50 mg PO DAILY 07/04/20 07/04/20 omeprazole 40 mg PO DAILY 07/04/20 07/04/20 ondansetron 4 mg PO Q8H PRN #30 tab 07/04/20 trazodone 150 mg PO HS 07/04/20 07/04/20 Previous Rx's Medication Instructions Recorded ondansetron 4 mg PO Q8H PRN #30 tab 07/04/20 Allergies Allergy/AdvReac Type Severity Reaction Status Date / Time No Known Allergies Allergy Unverified 01/01/19 09:17 General Stated Complaint: Abd Prob YESSICA: 2 Review of Systems All systems reviewed & are unremarkable except as noted in HPI and below Constitutional Constitutional: Denies chills, Denies fever(s) and Denies weakness Cardiovascular Cardiovascular: Denies chest pain and Denies dyspnea Respiratory Respiratory: Denies cough and Denies dyspnea Gastrointestinal Gastrointestinal: Denies vomiting Musculoskeletal Musculoskeletal: Denies joint swelling Neurologic Neurologic: Denies weakness [facility] Medical History (Updated 07/04/20 @ 18:03 by Harrison Soto MD) ADD (attention deficit disorder) Alcohol abuse Anxiety and depression Chronic insomnia GERD (gastroesophageal reflux disease) History of opioid abuse Obesity Seizures Social History Smoking/Tobacco Use Status: Current every day Tobacco Type: cigarettes Smoking risk assessment performed?: Yes Alcohol Intake: current Alcohol Intake frequency: 3 or more drinks per day Alcohol type: beer Drug use: Never Household members: spouse Housing: apartment current occupation: [employer] Do you feel safe in your relationship?: Yes Additional Social history: 07/04/20--my told me she would leave me if I didn't go to the hospital Exam Const General: no acute distress Orientation: alert HENMT Head: normal to inspection Ears: external ears normal General nose exam: external nose normal Mouth: moist mucous membranes Eyes Alignment and Position: alignment normal Neck Neck: normal visual inspection Resp Effort & Inspection: normal respiratory effort and able to speak in complete sentences Cardio Rate: regular rate GI Palpation: soft and tender Skin General skin exam: no rashes or lesions noted Neuro General: patient alert and patient oriented x3 Extrem General: normal to inspection Psych Mental Status: mental status grossly normal Course Vital Signs Vital signs: Vital Signs Temperature 36.9 C 07/04/20 15:22 Pulse 112 H 07/04/20 15:22 Respiratory Rate 15 07/04/20 15:22 Blood Pressure 141/88 H 07/04/20 15:22 Pulse Oximetry 94 07/04/20 15:22 Temperature 36.9 C 07/04/20 15:22 Temperature Source Temporal Artery Scan 07/04/20 15:22 Pulse 112 H 07/04/20 15:22 Respiratory Rate 15 07/04/20 15:22 Respiratory Effort Non-Labored 07/04/20 15:26 Blood Pressure 141/88 H 07/04/20 15:22 Blood Pressure Position Sitting 07/04/20 15:22 Pulse Oximetry 94 07/04/20 15:22 Oxygen Delivery Method Room Air 07/04/20 15:22 Oxygen Flow Rate 0 07/04/20 15:22 Pain Level 2 07/04/20 15:22
[2020-07-04 15:52] LABS: Lactate 6.5 mmol/L (0.6-1.4)
[2020-07-04 15:55] LABS: Abs Immature Grans 0.02 10^3/uL (0.0-0.06); Absolute Basophil Count 0.06 10^3/uL (0.0-0.2); Absolute Eosinophil Count 0.01 10^3/uL (0.0-0.7); Absolute Monocyte Count 0.85 10^3/uL (0.1-0.8); Basophils % 0.6; Eosinophils % 0.1; HCT 39.1 % (40.0-50.0); HGB 14.2 g/dL (13.5-17.5); Immature Grans % 0.2; Lymphocytes % 14.7; MCH 36.7 pg (27.0-33.0); MCHC 36.3 % (32.0-36.0); MPV 10.6 fL (8.0-11.0); Monocytes % 8.9; Neutrophils % 75.5; Nucleated RBC 0 %; Platelet Count 166 10^3/uL (130-400); RBC 3.87 10^6/uL (4.36-5.78); RDW 15.1 % (11.8-14.1); RDW-SD 56.4 fL; WBC 9.54 10^3/uL (4.4-10.8)
[2020-07-04 16:03] LABS: INR 1.2 (0.9-1.1); PTT Activated 26.5 sec (21.0-27.5); Prothrombin Time 11.6 sec (9.3-11.0)
[2020-07-04 16:08] LABS: ALT 135 U/L (16-63); AST 267 U/L (15-37); Alkaline Phosphatase 267 U/L (46-116); Anion Gap 12.5 mmol/L (3-11); BUN 2 mg/dL (7-18); Bilirubin, Direct 6.09 mg/dL (0.00-0.20); Bilirubin, Total 7.5 mg/dL (0.2-1.0); Bilirubin, Total 7.6 mg/dL (0.2-1.0); CO2 27.5 mmol/L (21.0-32.0); CREATININE 0.8 mg/dL (0.70-1.30); Calcium 7.9 mg/dL (8.5-10.1); Chloride 94 mmol/L (98-107); Glucose 190 mg/dL (74-106); Lipase 109 U/L (73-393); Magnesium 1.8 mg/dL (1.8-2.4); Sodium 134 mmol/L (136-145); Total Protein 6.9 g/dL (6.4-8.2)
[2020-07-04 16:09] LABS: ETHANOL BLOOD 376.5 mg/dL (<3); Potassium 2.4 mmol/L (3.5-5.1)
[2020-07-04 16:11] LABS: Troponin I < 0.05 ng/mL (<0.06)
--- NOTE | 2020-07-04 16:30 | DI.CT_ITS ---
EXAM: CT ABDOMEN PELVIS CTA CLINICAL HISTORY: pain and elevated lactate. TECHNIQUE: Imaging Protocol: Axial CT angiography was performed with multi-slice acquisition and m ulti-planar and/or 3D reconstructions. CONTRAST MATERIAL: Intravenous: Omnipaque 350 Contrast volume:100 ml Oral: no COMPARISON: No exams were available for comparison FINDINGS: Vascular Structures: Celiac [place]/SMA: No evidence of stenosis. Renal Arteries: No evidence of stenosis. There is a single renal artery perfusing each kidney. Aorta: No aneurysm. No dissection. Moderate calcification and mild with mild mural thrombus distally . Pelvis: Iliac Arteries: Calcification and mild narrowing, right greater than left. Common Femoral Arteries: No evidence of stenosis. Soft Tissues: Unremarkable. Metallic density right lower quadrant. Lung bases:Partially visualized patchy densities. Correlate with signs of pneumonitis. Liver: Severe fatty infiltration. Enlarged. No measurable mass. Gallbladder and biliary tract: No radiodense calculus or dilation. Pancreas: Normal density, no abnormal calcifications or inflammatory process. Spleen: Normal. Kidneys: Normal size, contour and axis. No radiodense stones or obstructive uropathy. No masses seen. Adrenal glands: No masses seen. Bladder: Symmetric distention, no gross wall thickening. Bowel: Appendix normal. No obstruction. The colon is decompressed. There is diffuse wall thickenin g. There is some wall thickening of the stomach. Peritoneal cavity: There is some fluid seen anteriorly on the right along Gerota's fascia.. No free air. Bones: Within normal limits. Lymph nodes: Within normal limits. IMPRESSION: Atherosclerotic changes of the distal abdominal aorta and iliac arteries. No significant stenosis or vascular occlusion or dissection. Wall thickening of the stomach as well as colon. Small amount of ascites. Severe hepatic steatosis. RADIATION DOSE DELIVERED: Total DLP DATA REPOSITORY: All CT scans at this facility are submitted to the National Radiology Data Registry (NRDR) Dose Index Registry (DIR) with the [employer] (ACR). RADIATION OPTIMIZATION: All CT scans at this facility use at least one of these dose optimization te chniques: automated exposure control; mA and/or kV adjustment per patient size (includes targeted exa ms where dose is matched to clinical indication); or iterative reconstruction.
[2020-07-04] MEDS: Potassium Chloride 20 MEQ TABCR 40 MEQ PO (16:33)
[2020-07-04] MEDS: Ondansetron 4 MG/2 ML VIAL IVP (16:35)
[2020-07-04] MEDS: Normal Saline 1,000 ML 1000 ML IV (16:36)
[2020-07-04] MEDS: Omnipaque 350 MG/ML 50 ML BTL 100 ML IJ (16:43)
[2020-07-04] MEDS: Normal Saline - Diluent 50 ML VIAL IV (16:44)
[2020-07-04] MEDS: Normal Saline Flush 10 ML SYR IVP (16:45)
[2020-07-04] MEDS: POTASSIUM CHLORIDE 10 MEQ/100 ML BAG 100 MEQ IVPB (16:53)
[2020-07-04 17:07] LABS: Bilirubin Large (Negative); Blood Trace-intact (Negative); Clarity Clear (Clear); Glucose Negative (Negative); Ketones Negative (Negative); Leukocyte Esterase Negative (Negative); Nitrite Negative (Negative); Specific Gravity 1.015 (1.005-1.025)
[2020-07-04 17:20] LABS: Bacteria Negative HPF (Negative); C & S Indicated? No; Crystals Negative HPF (Negative); Epithelial Cells Negative HPF (Negative); Mucus Negative (Negative); Other Cells Few Transitional (Negative); RBC 0-2 HPF (0-2); WBC 0-2 HPF (0-5)
[2020-07-04 17:24] LABS: *AMPHETAMINES SCREEN URINE Negative (Negative); *BARBITURATES SCREEN URINE Negative (Negative); *BENZODIAZEPINES SCREEN URINE Negative (Negative); Cannabinoids THC Negative (Negative); Cocaine Screen,Urine Negative (Negative); METHADONE URINE SCREEN Negative (Negative); OPIATES URINE SCREEN Negative (Negative)
[2020-07-04 17:26] LABS: Tricyclic Antidepressants Negative (Negative)
--- NOTE | 2020-07-04 17:48 | DI.VRAD_ITS ---
PROCEDURE INFORMATION: Exam: CT Angiography Abdomen and Pelvis With Contrast Exam date and time: 07/04/2020 4:33 PM Age: 40 years old Clinical indication: Abdominal pain; Generalized; Patient HX: Pain elevated lactate. Evaluate messenteric TECHNIQUE: Imaging protocol: Computed tomographic angiography of the abdomen and pelvis with contrast material. 3D rendering (Not supervised by radiologist): MIP and/or 3D reconstructed images were created by the technologist. Contrast material: OMNIPAQUE 350; Contrast volume: 100 ml; Contrast route: INTRAVENOUS (IV); COMPARISON: No relevant prior studies available. FINDINGS: Lungs: There is minimal nonspecific none ground-glass densities in lingular segment (image 1 series 5).1 Aorta: No aortic aneurysm. No aortic dissection. There are calcifications of abdominal aorta and its branches Celiac trunk and mesenteric arteries: No occlusion or significant stenosis. Renal arteries: No occlusion or significant stenosis. Right iliac arteries: No occlusion or significant stenosis. Left iliac arteries: No occlusion or significant stenosis. Liver: There is hepatomegaly with diffusely decreased attenuation of the liver. Gallbladder and bile ducts: No calcified stones. No ductal dilation. Pancreas: No mass. No ductal dilation. Spleen: No splenomegaly. Adrenal glands: No mass. Kidneys and ureters: No solid mass. No hydronephrosis. Stomach and bowel: There is mild inner mucosal thickening and enhancement of the rectosigmoid colon as well as the descending, transverse and ascending colon. There is mild diffuse pericolonic fat stranding. There is mild edema of the gastric antrum and mild stranding adjacent duodenum which could be reactive. Appendix: Appendix is normal. Intraperitoneal space: There is a metallic density in the right lower quadrant. There is trace ascites. Lymph nodes: Unremarkable. No enlarged lymph nodes. Urinary bladder: Unremarkable. No mass. Reproductive: Unremarkable as visualized. Bones/joints: There are chronic fractures of 9th 8 and 7th right lateral ribs. Soft tissues: Unremarkable. IMPRESSION: 1. Diffuse inner mucosal thickening of colon might reflect mild pancolitis. 2. No stenosis in the abdominal aorta, SMA, celiac trunk inferior mesenteric arteries. 3. Trace ascites which could be reactive. 4. There is mild edema of the gastric antrum, correlate with signs of gastritis. 5. Hepatomegaly with diffuse hepatic steatosis or steatohepatitis. Dictated and Authenticated by: Eladio Hope MD. Ordering:RAULITO Terry MD
--- NOTE | 2020-07-04 18:12 | NUR.NOTE ---
pt called for update. Informed her we were waiting for CT results, MD Soto would call her when results in. Pt then decided he did not want the doctor to speak to his and he wanted to leave AMA. Asked MD Soto to speak to his sister Analilia.
== END 2020-07-04 18:10 | disposition left against medical advice (07) ==
PROVIDERS: Emergency Provider Emergency Medicine; PCP Family Medicine
DX: E87.6 Hypokalemia (principal); K70.11 Alcoholic hepatitis with ascites; R10.10 Upper abdominal pain, unspecified; F10.220 Alcohol dependence with intoxication, uncomplicated; Y90.8 Blood alcohol level of 240 mg/100 ml or more; Z53.29 Procedure and treatment not carried out because of patient's decision for other reasons
CPT/HCPCS: 36410; 80053; 80307; 83690; 87040; 93005; 96361; 96365; 96375; 99285; 74174; 80320; 81003; 81015; 82247; 82248; 83605; 83735; 84484; 85025; 85610; 85730; 93010; J2405; J3480; Q9967

== ENCOUNTER 2020-07-08 12:55 | Inpatient (IN) | payer MEDICAID, SELFPAY ==
[2020-07-08] VITALS (81 sets, daily range): BP systolic 107–154; BP diastolic 65–106; PULSE 108–140; RESP 1–35; TEMP 37.3–37.7; O2SAT 85–97
--- NOTE | 2020-07-08 13:00 | RT.EKG_ITS ---
APPROVED REPORT Exam: Resting ECG Patient Location: E HR:123 bpm ECG Measurements Heart Rate 123 AXIS WI 130 P 35 QRSd 97 QRS 58 QT 322 T 56 QTc 461 Conclusion Sinus tachycardia...rate> 99 I have reviewed and interpreted ECG and agree with software generated interpretation.
--- NOTE | 2020-07-08 13:26 | DI.RAD_ITS ---
EXAM: XR PORTABLE CHEST AP CLINICAL HISTORY: fever TECHNIQUE: 2D digital imaging was performed. COMPARISON: CR XR CHEST 2V PA LATERAL from 03/14/2018 CR XR SHOULDER LT COMPLETE 2+V from 02/18/2019 FINDINGS: MEDIASTINUM: Normal. HEART: Normal. PULMONARY VASCULATURE: Normal. LUNGS: Multifocal airspace opacities are seen in the lungs. PLEURAL SPACE: No pleural effusion or pneumothorax. BONE:Within normal limits for the patient's age. OTHER FINDINGS:There is poor inspiration. There is elevation of the right hemidiaphragm. IMPRESSION: Multifocal airspace opacities suspicious for pneumonia. DATA REPOSITORY: RADIATION DOSE DELIVERED:
[2020-07-08 13:38] LABS: BE (Venous) 7 mmol/L (-2-3); HCO3 (Venous) 29 mmol/L (23-28); O2 Sat (Venous) 99 %; TCO2 (Venous) 26 mmol/L (24-29); pCO2 (Venous) 36 mmHg (41-51); pH (Venous) 7.52 (7.31-7.41); pO2 (Venous) 107 mmHg
[2020-07-08 13:40] LABS: Abs Immature Grans 0.07 10^3/uL (0.0-0.06); HCT 36.1 % (40.0-50.0); HGB 13.3 g/dL (13.5-17.5); MCHC 36.8 % (32.0-36.0); MCV 100.6 fL (80-95); MPV 10.6 fL (8.0-11.0); Platelet Count 148 10^3/uL (130-400); RBC 3.59 10^6/uL (4.36-5.78); RDW 15.3 % (11.8-14.1); WBC 12.45 10^3/uL (4.4-10.8)
[2020-07-08] MEDS: Normal Saline 1,000 ML 1000 ML IV (13:40)
--- NOTE | 2020-07-08 13:44 | NUR.NOTE ---
Nursing Note: I spoke with the patient and he stated that he did not want his or mother to be given any information. We can tell them that he is stable. Nikole Paez mother [phone] Christina [phone]
[2020-07-08 13:53] LABS: Magnesium 1.7 mg/dL (1.8-2.4)
[2020-07-08 13:53] LABS: ALT 94 U/L (16-63); AST 302 U/L (15-37); Albumin 1.8 g/dL (3.4-5.0); Alkaline Phosphatase 243 U/L (46-116); Anion Gap 15.1 mmol/L (3-11); BUN 3 mg/dL (7-18); CO2 25.9 mmol/L (21.0-32.0); CREATININE 0.7 mg/dL (0.70-1.30); Calcium 7.9 mg/dL (8.5-10.1); Chloride 90 mmol/L (98-107); Glucose 123 mg/dL (74-106); Sodium 131 mmol/L (136-145); Total Protein 6.9 g/dL (6.4-8.2)
[2020-07-08 13:54] LABS: Lipase 117 U/L (73-393)
[2020-07-08 13:59] LABS: INR 1.3 (0.9-1.1); Prothrombin Time 13.1 sec (9.3-11.0)
[2020-07-08 14:00] LABS: Lactate 5.8 mmol/L (0.6-1.4)
[2020-07-08 14:06] LABS: Ammonia 54 umol/L (11-32)
[2020-07-08 14:06] LABS: Absolute Basophil Count 0.12 10^3/uL (0.0-0.2); Absolute Neutrophil Count 9.71 10^3/uL (1.2-6.7); Bands % 3; Nucleated RBC 1 %
[2020-07-08 14:07] LABS: Absolute Lymphocyte Count 1.62 10^3/uL (1.2-3.4); Diff Comment Manual Differential; Macrocytosis 2+; Target Cells 2+
--- NOTE | 2020-07-08 14:28 | W.ED.GENAD ---
Discharge Plan Discharge Details Chief Complaint: Abd Prob Admit Date/Time: 07/08/20 15:23 Admit Provider: Naeem Madden Attending Provider: Naeem Madden Primary Care Provider: Gabriela Valerio ED Provider: Myriam Staley Discharge Data Discharge Date/Time-TO BE ENTERED AT DEPARTURE: 07/08/20 18:00 Medical Decision Making <OVI [place] - Last Filed: 07/09/20 08:40> Patient is a full code, confirmed with patient at 1535 on 08 July He is agreeable to admission He has multifocal pneumonia and was treated for possible aspiration pneumonia with Zosyn and azithromycin IV fluids initiated Blood pressure has been stable, does not meet septic shock criteria He does have a markedly elevated bilirubin which is probably confounded by recent beta-elizabeth initiation, pneumonia, and alcoholism He is given 2 L of fluid bolus for weight adjusted Case discussed with Dr. Turner who will accept patient The CIWA scale monitored throughout his encounter, currently aside from the tachycardia which I suspect is secondary to his current state of illness and elevated lactate and less likely related to alcohol withdrawal given a 40 ounce beer in route to the hospital, I did not start any withdrawal medications and observe closely instead Patient did have an order supplied for 1 to 2 mg of Ativan as needed, has ammonia was found to be elevated and I will wait to administer lactulose until patient is on the floor for comfort His tachycardia has mildly improved He is agreeable to admission after confirmation with Dr. Turner I initially held withdrawal medication the patient had a 40 ounce beer prior to arrival and I do not believe this tachycardia secondary to withdrawal, more likely she has current state of illness He is full CODE STATUS, this was confirmed patient was alert, oriented, of decisional capacity, his speech is maintained flat throughout the encounter Ammonia level was found to be elevated at 54, I did not administer lactulose in the emergency room and will hold the discretion of the hospitalist on the floor Patient will be admitted to the intensive care unit I confirmed this prior to placement <Sri Vega DO - Last Filed: 07/08/20 14:56> I have seen and examined this patient. I discussed case and reviewed note with the PA and I agree with plan and note as documented. HPI <OVI [place] - Last Filed: 07/09/20 08:40> This 40-year-old male with history of alcoholism, hepatitis, presents with report of abdominal pain, nausea, vomiting, weakness. Denies any chest pain or shortness of breath. His last drink was at 36 ounce beer just prior to arrival. Denies any blood in vomitus. Denies any blood in stool. States he was evaluated several days ago and last against our recommendation. He denies current cough or shortness of breath. He denies known sick contacts. States the abdominal pain has been present for the past 4 days. Unable to eat secondary to nausea. Describes the pain as sharp and stabbing. pain at the experience previously. General Date/Time Provider Initiated Documentation: 07/08/20 13:12. Related Data Home Medications Medication Instructions Recorded Confirmed sertraline 50 mg tablet 50 mg PO DAILY tab-cap 08/28/18 07/08/20 betamethasone dipropionate 1 applic TOPICAL PRN PRN 07/04/20 07/08/20 bupropion HCl 150 mg PO DAILY 07/04/20 07/08/20 metoprolol succinate 50 mg PO DAILY 07/04/20 07/08/20 naltrexone 50 mg PO DAILY 07/04/20 07/08/20 omeprazole 40 mg PO DAILY 07/04/20 07/08/20 ondansetron 4 mg PO Q8H PRN #30 tab 07/04/20 07/08/20 trazodone 150 mg PO HS 07/04/20 07/08/20 Previous Rx's Medication Instructions Recorded ondansetron 4 mg PO Q8H PRN #30 tab 07/04/20 Allergies Allergy/AdvReac Type Severity Reaction Status Date / Time No Known Allergies Allergy Unverified 01/01/19 09:17 General Stated Complaint: Abd Prob YESSICA: 3 <Sri Vega DO - Last Filed: 07/08/20 14:56> This 40-year-old male with history of alcoholism, hepatitis, presents with report of abdominal pain, nausea, vomiting, weakness. Denies any chest pain or shortness of breath. His last drink was at 36 ounce beer just prior to arrival. Denies any blood in vomitus. Denies any blood in stool. States he was evaluated several days ago and last against our recommendation. He denies current cough or shortness of breath. He denies known sick contacts. States the abdominal pain has been present for the past 4 days. Unable to eat secondary to nausea. Describes the pain as sharp and stabbing. pain at the experience previously. Review of Systems <OVI [place] - Last Filed: 07/09/20 08:40> Narrative: Review of systems obtained x7 aside from where indicated in HPI PFSH <OVI [place] - Last Filed: 07/09/20 08:40> Medical History (Updated 07/08/20 @ 20:22 by Naeem Madden) ADD (attention deficit disorder) Alcohol abuse Anxiety and depression Chronic insomnia GERD (gastroesophageal reflux disease) History of opioid abuse Obesity Seizures Family History (Updated 07/08/20 @ 20:13 by Naeem Madden) Father Alcohol abuse Mother Alcohol abuse Social History (Updated 07/08/20 @ 20:15 by Naeem Madden) Smoking/Tobacco Use Status: Current every day Tobacco Type: cigarettes Smoking packs per day: 1 Smoking cigarettes per day: 20.0 Smoking risk assessment performed?: Yes Alcohol Intake: current Alcohol Intake frequency: 3 or more drinks per day Alcohol type: beer Details: Drinks a 12 pack of beer per day Drug use: Never Details: last beer at 1315 today Household members: spouse Housing: apartment 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); 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 Do you feel safe in your relationship?: Yes Exam <OVI [place] - Last Filed: 07/09/20 08:40> Const General: cooperative and healthy appearing Orientation: alert and oriented x3 HENMT Other: Oral thrush Eyes Pupils: PERRL Resp Effort & Inspection: retractions and tachypneic Cardio Rate: tachycardic Rhythm: regular rhythm GI Other: Mild diffuse tenderness Skin General skin exam: no rashes or lesions noted Other: Jaundiced Neuro General: patient alert and patient oriented x3 Other: slowed speech, no visible evidence of trauma, all basic commands able to be followed Course <OVI [place] - Last Filed: 07/09/20 08:40> Vital Signs Vital signs: Vital Signs Temperature 37.3 C 07/08/20 13:13 Pulse 129 H 07/08/20 13:13 Respiratory Rate 24 07/08/20 13:13 Blood Pressure 147/101 H 07/08/20 13:13 Pulse Oximetry 88 L 07/08/20 13:13 Temperature 37.7 C H 07/08/20 13:32 Temperature Source Oral 07/08/20 13:32 Pulse 129 H 07/08/20 13:13 Respiratory Rate 24 07/08/20 13:13 Respiratory Effort 07/08/20 13:20 Blood Pressure 147/101 H 07/08/20 13:13 Blood Pressure Position Supine 07/08/20 13:13 Pulse Oximetry 93 07/08/20 13:22 Oxygen Delivery Method Nasal Cannula 07/08/20 13:22 Oxygen Flow Rate 2 07/08/20 13:22 Pain Level 7 07/08/20 13:13 Lab/Test Results Lab/Test Results: 07/08/20 13:50 Blood Blood Culture - Pending 07/08/20 13:26 Blood Blood Culture - Pending Laboratory Tests Range/Units 07/08/20 07/08/20 07/08/20 13:17 13:17 13:17 WBC (4.4-10.8) 10^3/uL RBC (4.36-5.78) 10^6/uL Hgb (13.5-17.5) g/dL Hct (40.0-50.0) % MCV (80-95) fL MCH (27.0-33.0) pg MCHC (32.0-36.0) % RDW (11.8-14.1) % Plt Count (130-400) 10^3/uL MPV (8.0-11.0) fL Immature Gran % Neutrophils % Band Neutrophils % Lymphocytes % Monocytes % Eosinophils % Basophils % Nucleated RBC % % Absolute Neutrophils (1.2-6.7) 10^3/uL Absolute Lymphocytes (1.2-3.4) 10^3/uL Absolute Monocytes (0.1-0.8) 10^3/uL Absolute Eosinophils (0.0-0.7) 10^3/uL Absolute Basophils (0.0-0.2) 10^3/uL RBC Morphology Macrocytosis PT (9.3-11.0) sec 13.1 H INR (0.9-1.1) 1.3 H VBG pH (7.31-7.41) VBG pCO2 (41-51) mmHg VBG pO2 mmHg VBG HCO3 (23-28) mmol/L VBG Total CO2 (24-29) mmol/L VBG O2 Saturation % VBG Base Excess (-2-3) mmol/L VBG Lactate Sodium (136-145) mmol/L Potassium (3.5-5.1) mmol/L Chloride (98-107) mmol/L Carbon Dioxide (21.0-32.0) mmol/L Anion Gap (3-11) mmol/L BUN (7-18) mg/dL Creatinine (0.70-1.30) mg/dL Estimated GFR/1.73 m2 (mL/min/1.73m2) Glucose (74-106) mg/dL Calcium (8.5-10.1) mg/dL Magnesium (1.8-2.4) mg/dL 1.7 L Total Bilirubin (0.2-1.0) mg/dL AST (15-37) U/L ALT (16-63) U/L Alkaline Phosphatase (46-116) U/L Ammonia Total Protein (6.4-8.2) g/dL Albumin (3.4-5.0) g/dL Lipase (73-393) U/L 117 COVID-19 Source Range/Units 07/08/20 07/08/20 07/08/20 13:18 13:18 13:18 WBC (4.4-10.8) 10^3/uL RBC (4.36-5.78) 10^6/uL Hgb (13.5-17.5) g/dL Hct (40.0-50.0) % MCV (80-95) fL MCH (27.0-33.0) pg MCHC (32.0-36.0) % RDW (11.8-14.1) % Plt Count (130-400) 10^3/uL MPV (8.0-11.0) fL Immature Gran % Neutrophils % Band Neutrophils % Lymphocytes % Monocytes % Eosinophils % Basophils % Nucleated RBC % % Absolute Neutrophils (1.2-6.7) 10^3/uL Absolute Lymphocytes (1.2-3.4) 10^3/uL Absolute Monocytes (0.1-0.8) 10^3/uL Absolute Eosinophils (0.0-0.7) 10^3/uL Absolute Basophils (0.0-0.2) 10^3/uL RBC Morphology Macrocytosis PT (9.3-11.0) sec INR (0.9-1.1) VBG pH (7.31-7.41) VBG pCO2 (41-51) mmHg VBG pO2 mmHg VBG HCO3 (23-28) mmol/L VBG Total CO2 (24-29) mmol/L VBG O2 Saturation % VBG Base Excess (-2-3) mmol/L VBG Lactate Cancelled Sodium (136-145) mmol/L 131 L Potassium (3.5-5.1) mmol/L 3.0 L Chloride (98-107) mmol/L 90 L Carbon Dioxide (21.0-32.0) mmol/L 25.9 Anion Gap (3-11) mmol/L 15.1 H BUN (7-18) mg/dL 3 L Creatinine (0.70-1.30) mg/dL 0.7 Estimated GFR/1.73 m2 (mL/min/1.73m2) >= 60.00 Glucose (74-106) mg/dL 123 H Calcium (8.5-10.1) mg/dL 7.9 L Magnesium (1.8-2.4) mg/dL Total Bilirubin (0.2-1.0) mg/dL 13.0 H AST (15-37) U/L 302 H ALT (16-63) U/L 94 H Alkaline Phosphatase (46-116) U/L 243 H Ammonia Cancelled Total Protein (6.4-8.2) g/dL 6.9 Albumin (3.4-5.0) g/dL 1.8 L Lipase (73-393) U/L COVID-19 Source Range/Units 07/08/20 07/08/20 07/08/20 13:18 13:18 13:35 WBC (4.4-10.8) 10^3/uL 12.45 H RBC (4.36-5.78) 10^6/uL 3.59 L Hgb (13.5-17.5) g/dL 13.3 L Hct (40.0-50.0) % 36.1 L MCV (80-95) fL 100.6 H MCH (27.0-33.0) pg 37.0 H MCHC (32.0-36.0) % 36.8 H RDW (11.8-14.1) % 15.3 H Plt Count (130-400) 10^3/uL 148 MPV (8.0-11.0) fL 10.6 Immature Gran % 0.0 Neutrophils % 75.0 Band Neutrophils % 3 Lymphocytes % 13.0 Monocytes % 8.0 Eosinophils % 0.0 Basophils % 1.0 Nucleated RBC % % 1 Absolute Neutrophils (1.2-6.7) 10^3/uL 9.71 H Absolute Lymphocytes (1.2-3.4) 10^3/uL 1.62 Absolute Monocytes (0.1-0.8) 10^3/uL 1.00 H Absolute Eosinophils (0.0-0.7) 10^3/uL 0.00 Absolute Basophils (0.0-0.2) 10^3/uL 0.12 RBC Morphology See below Macrocytosis 2+ PT (9.3-11.0) sec INR (0.9-1.1) VBG pH (7.31-7.41) 7.52 H VBG pCO2 (41-51) mmHg 36 L VBG pO2 mmHg 107 VBG HCO3 (23-28) mmol/L 29 H VBG Total CO2 (24-29) mmol/L 26 VBG O2 Saturation % 99 VBG Base Excess (-2-3) mmol/L 7 H VBG Lactate Sodium (136-145) mmol/L Potassium (3.5-5.1) mmol/L Chloride (98-107) mmol/L Carbon Dioxide (21.0-32.0) mmol/L Anion Gap (3-11) mmol/L BUN (7-18) mg/dL Creatinine (0.70-1.30) mg/dL Estimated GFR/1.73 m2 (mL/min/1.73m2) Glucose (74-106) mg/dL Calcium (8.5-10.1) mg/dL Magnesium (1.8-2.4) mg/dL Total Bilirubin (0.2-1.0) mg/dL AST (15-37) U/L ALT (16-63) U/L Alkaline Phosphatase (46-116) U/L Ammonia Total Protein (6.4-8.2) g/dL Albumin (3.4-5.0) g/dL Lipase (73-393) U/L COVID-19 Source Nasopharyx Range/Units 07/08/20 07/08/20 13:55 13:55 WBC (4.4-10.8) 10^3/uL RBC (4.36-5.78) 10^6/uL Hgb (13.5-17.5) g/dL Hct (40.0-50.0) % MCV (80-95) fL MCH (27.0-33.0) pg MCHC (32.0-36.0) % RDW (11.8-14.1) % Plt Count (130-400) 10^3/uL MPV (8.0-11.0) fL Immature Gran % Neutrophils % Band Neutrophils % Lymphocytes % Monocytes % Eosinophils % Basophils % Nucleated RBC % % Absolute Neutrophils (1.2-6.7) 10^3/uL Absolute Lymphocytes (1.2-3.4) 10^3/uL Absolute Monocytes (0.1-0.8) 10^3/uL Absolute Eosinophils (0.0-0.7) 10^3/uL Absolute Basophils (0.0-0.2) 10^3/uL RBC Morphology Macrocytosis PT (9.3-11.0) sec INR (0.9-1.1) VBG pH (7.31-7.41) VBG pCO2 (41-51) mmHg VBG pO2 mmHg VBG HCO3 (23-28) mmol/L VBG Total CO2 (24-29) mmol/L VBG O2 Saturation % VBG Base Excess (-2-3) mmol/L VBG Lactate 5.8 H* Sodium (136-145) mmol/L Potassium (3.5-5.1) mmol/L Chloride (98-107) mmol/L Carbon Dioxide (21.0-32.0) mmol/L Anion Gap (3-11) mmol/L BUN (7-18) mg/dL Creatinine (0.70-1.30) mg/dL Estimated GFR/1.73 m2 (mL/min/1.73m2) Glucose (74-106) mg/dL Calcium (8.5-10.1) mg/dL Magnesium (1.8-2.4) mg/dL Total Bilirubin (0.2-1.0) mg/dL AST (15-37) U/L ALT (16-63) U/L Alkaline Phosphatase (46-116) U/L Ammonia 54 H Total Protein (6.4-8.2) g/dL Albumin (3.4-5.0) g/dL Lipase (73-393) U/L COVID-19 Source Critical Care Time <OVI [place] - Last Filed: 07/09/20 08:40> Critical Care Time Critical Care Time: Yes Total Critical Care Time: 55 Attestation: Critical care was performed, patient received telemetry monitoring, CIWA monitoring, sepsis bolus for severe sepsis, IV antibiotics, diagnostic labs, EKG, ultrasound imaging of abdomen for possible ascites
[2020-07-08] MEDS: Metoclopramide 10 MG/2 ML VIAL IVP (14:29)
[2020-07-08 14:30] LABS: COVID-19 PCR Negative (Negative); Influenza A PCR Negative (Negative); Influenza B PCR Negative (Negative); RSV PCR Negative (Negative)
--- NOTE | 2020-07-08 14:30 | DI.US_ITS ---
EXAM: US ABDOMEN CLINICAL HISTORY: evaluate for ascites TECHNIQUE: Ultrasound abdomen performed using standard protocol. COMPARISON: No exams were available for comparison FINDINGS: ABDOMINAL AORTA AND IVC: Visualized portions normal caliber. PANCREAS: Normal where visualized. LIVER: The liver measures 20.4 cm. There is diffuse increased echogenicity of the liver consistent w ith fatty infiltration. Hepatopedal flow in the Portal Vein. GALLBLADDER: No evidence of cholelithiasis. The gallbladder wall is thickened, measuring 0.5 cm. Thi s may be due to decreased distension. No pericholecystic fluid identified. BILIARY SYSTEM: Common bile duct measures < 7 mm. No intrahepatic biliary ductal dilation. ZHAO'S SIGN: Negative. KIDNEYS: Kidneys are symmetric in size. No evidence of renal calculi. No evidence of hydronephrosis. No renal mass or cyst identified. SPLEEN: The spleen measures 12.3 cm. ASCITES: There is a trace amount of free fluid adjacent to the liver. No other free fluid is identif ied in the lower quadrants or left upper quadrant. IMPRESSION: 1. Hepatomegaly and hepatic steatosis. 2. Trace amount of perihepatic ascites. 3. Mild gallbladder wall thickening. This may be due to the contracted gallbladder. 4. Results of this exam have been verbally communicated with provider. DATA REPOSITORY:
[2020-07-08] MEDS: methylPREDNISolone SUCC 125 MG VIAL IVP (15:15)
[2020-07-08] MEDS: MAGNESIUM SULFATE 8.12 MEQ, MULTIVITAMIN 10 ML, THIAMINE 100 MG, FOLIC ACID 1 MG in Nor... 168.867 MG IV (15:24)
[2020-07-08] MEDS: PIPERACILLIN/TAZO 3.375 GM in Normal Saline 50 ML IVPB (15:25)
[2020-07-08] MEDS: AZITHROMYCIN 500 MG in Normal Saline 250 ML 250 MG IVPB (16:00)
[2020-07-08 18:23] LABS: Bilirubin Large (Negative); Blood Trace-intact (Negative); Clarity Clear (Clear); Glucose Negative (Negative); Ketones Negative (Negative); Leukocyte Esterase Negative (Negative); Nitrite Negative (Negative); Urobilinogen 0.2 EU/dL (Up TO 0.2); pH 6.5 (5-8)
--- NOTE | 2020-07-08 18:44 | HPE_ITS ---
Date of service: 07/08/20 Time of Service: 18:45 Assessment and Plan Assessment and plan (1) Alcohol withdrawal: Status: Acute Assessment and plan: Placed on [place] protocol call, give him an folate and thiamine along with IV fluids and replacement of electrolytes. Start him on phenobarbital . For his abdominal pain will give antiemetics and narcotic analgesics. Will request a nutritional consult in the morning. Qualifiers: Complication of substance-induced condition: uncomplicated Qualified Code(s): F10.230 - Alcohol dependence with withdrawal, uncomplicated (2) Hypokalemia: Status: Acute Assessment and plan: We will give IV supplementation repeat electrolytes in the morning. (3) Abdominal pain: Status: Acute Assessment and plan: Supply with low-dose narcotic analgesics. Tylenol contraindicated in his liver disease and likewise cannot give him an NSAID. Qualifiers: Abdominal location: generalized Qualified Code(s): R10.84 - Generalized abdominal pain (4) Alcoholic hepatitis: Status: Acute Assessment and plan: We will check viral acute hepatitis studies and serum iron studies. Given his fatty liver is presumed that he has acute alcoholic hepatitis. Qualifiers: Ascites presence: without ascites Qualified Code(s): K70.10 - Alcoholic hepatitis without ascites History of Present Illness History of Present Illness Chief Complaint: Shortness of breath Narrative: 40-year-old alcoholic with history of alcohol withdrawal seizures and essential hypertension and a 1 pack/day smoker who drinks up to 12 beers per day presents with shortness of breath, fatigue nausea, vomiting and generalized weakness and nonproductive cough. Patient states his last drink was just prior to arrival drinking about 36 ounces of beer. Although he states that he is cut down his drinking last couple days because of nausea and vomiting. He has had increasing abdominal bloating and jaundice over the last several days. He denies any melena or hematochezia and no hematemesis. He has had no Covid exposure that he is aware. Patient underwent an evaluation in the ER included chest x-ray and abdominal ultrasound as well as routine labs. Of note patient was seen in the emergency department July 04, 2020 at that time he came in with complaints of 3 weeks of nausea and vomiting upper abdominal pain and reported noticing blood in his urine. At that time he had no fever or chills and denies any illicit drug use. During that presentation he was noted to be icteric and jaundiced. And he underwent an evaluation for his abdominal pain including labs and a CTA of his abdomen. It was suspected that he has alcoholic hepatitis or ascites. At that time the CTh showed diffuse mucosal thickening of the colon suggestive of pancolitis he had no vascular pathology of the abdominal aorta or its branches and he had a trace of ascites along with mild edema of the gastric antrum and hepatomegaly with diffuse hepatic steatosis. Is recommended he be admitted the hospital and treated with antibiotics and IV fluids but the patient refused admission. And now his work-up in the ER today included chest x-ray and abdominal ultrasound. Ultrasound demonstrates hepatomegaly and hepatic steatosis with trace amount of perihepatic ascites. He has mild gallbladder wall thickening but no evidence of cholelithiasis. No pericholecystic fluid was seen. Chest x-ray however showed multifocal airspace opacities suspicious for pneumonia. Nasopharyngeal swab was obtained for SARS-CoV-2 and was negative. He is also negative for influenza type a and B and RSV as well. Laboratory studies shows a leukocytosis of 12,400 and he has macrocytic changes in his red cells. Blood gas was done and shows mild respiratory alkalosis with pH 7.52 and a PCO2 of 36 with a PO2 of 107. Blood lactate was elevated at 5.8. Coagulation studies show an elevated pro time of 13.1 and INR 1.3. CMP demonstrates hyponatremia with serum sodium of 131 and a potassium of 3.0 and a chloride of 90 with an anion gap of 15.1. BUN and creatinine normal at 3 and 0.7. Total bilirubin is elevated at 13.0 with an AST of 302, ALT 94, alkaline phosphatase 243 and an ammonia level of 54. Lipase is normal at 117. Patient was given a dose of azithromycin 500 mg and Zosyn 3.375 g to treat his pneumonia and was given a dose of Solu-Medrol 125 mg. He was given a bolus of saline 1000 mL. Patient is now admitted to the intensive care unit for treatment of community- acquired pneumonia along with acute alcohol withdrawal and alcoholic hepatitis. Review of Systems Cardiovascular Cardiovascular: Denies chest pain, Reports diaphoresis, Reports rapid heart rate, Reports dyspnea and Reports dyspnea on exertion Respiratory Respiratory: Denies change in phlegm color, Reports cough, Denies hemoptysis, Reports dyspnea, Reports dyspnea on exertion and Reports wheezing Gastrointestinal Gastrointestinal: Reports as per HPI Genitourinary Genitourinary: Reports other Comments: No gross hematuria but was told when he went for preemployment physical that he had blood in his urine Musculoskeletal Musculoskeletal: Reports system reviewed and no additional complaints, except as documented Integumentary/Breasts Skin/Breast: Reports system reviewed and no additional complaints, except as documented Neurologic Neurologic: Reports system reviewed and no additional complaints, except as documented Psychiatric Psychiatric: Reports anxiety Endocrine Endocrine: Reports system reviewed and no additional complaints, except as documented Hematologic/Lymphatic Hematologic/Lymphatic: Reports system reviewed and no additional complaints, except as documented Allergic/Immunologic Allergic/Immunologic: Reports wheezing PFSH Medical History (Updated 07/08/20 @ 20:22 by Naeem Madden) ADD (attention deficit disorder) Alcohol abuse Anxiety and depression Chronic insomnia GERD (gastroesophageal reflux disease) History of opioid abuse Obesity Seizures Family History (Updated 07/08/20 @ 20:13 by Naeem Madden) Father Alcohol abuse Mother Alcohol abuse Social History (Updated 07/08/20 @ 20:15 by Naeem Madden) Smoking/Tobacco Use Status: Current every day Tobacco Type: cigarettes Smoking packs per day: 1 Smoking cigarettes per day: 20.0 Smoking risk assessment performed?: Yes Alcohol Intake: current Alcohol Intake frequency: 3 or more drinks per day Alcohol type: beer Details: Drinks a 12 pack of beer per day Drug use: Never Details: last beer at 1315 today Household members: spouse Housing: apartment 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); 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 Do you feel safe in your relationship?: Yes Meds Home Medications and Allergies Allergies Allergy/AdvReac Type Severity Reaction Status Date / Time No Known Allergies Allergy Unverified 01/01/19 09:17 Home Medications Medication Instructions Recorded Confirmed Type sertraline 50 mg tablet 50 mg PO DAILY tab-cap 08/28/18 07/08/20 History betamethasone dipropionate 1 applic TOPICAL PRN PRN 07/04/20 07/08/20 History bupropion HCl 150 mg PO DAILY 07/04/20 07/08/20 History metoprolol succinate 50 mg PO DAILY 07/04/20 07/08/20 History naltrexone 50 mg PO DAILY 07/04/20 07/08/20 History omeprazole 40 mg PO DAILY 07/04/20 07/08/20 History ondansetron 4 mg PO Q8H PRN #30 tab 07/04/20 07/08/20 Rx trazodone 150 mg PO HS 07/04/20 07/08/20 History Exam Narrative Exam Narrative: Obese male who is alert and oriented and answering que stions appropriately but appears to be anxious. He is mildly diaphoretic. HEENT is remarkable for scleral icterus as well as jaundice of the face and the rest of the body. Oropharynx is noninjected dentition is in poor repair with multiple fillings did not see any gingival bleeding nor any signs of purulent discharge from his gums. Neck is supple no JVD normal carotid pulses although slightly tachycardic no adenopathy no thyromegaly Lungs with diffuse expiratory wheezes but no rhonchi or rales Heart is slightly tachycardic without appreciable murmur rub Abdomen is obese and distended and diffusely tender with palpably enlarged liver but unable to palpate his spleen. No bruits and no rebound tenderness. No caput medusa. Lower extremities without pitting edema. He has normal pedal pulses. Upper extremities with mild resting tremor but no asterixis. Skin with a number of spider hemangiomas over the chest and abdomen and upper arms. Neuro exam: Alert and oriented person place time and circumstance. Anxious but not hallucinating. No focal cranial nerve deficits. No focal motor or sensory deficits. No asterixis. Results Labs Result diagrams: 07/08/20 13:18 07/08/20 13:18 Labs: Laboratory Results - last 24 hr 07/08/20 07/08/20 07/08/20 13:17 13:17 13:17 WBC RBC Hgb Hct MCV MCH MCHC RDW Plt Count MPV Immature Gran % Neutrophils % Band Neutrophils % Lymphocytes % Monocytes % Eosinophils % Basophils % Nucleated RBC % Absolute Neutrophils Absolute Lymphocytes Absolute Monocytes Absolute Eosinophils Absolute Basophils RBC Morphology Macrocytosis PT 13.1 H INR 1.3 H VBG pH VBG pCO2 VBG pO2 VBG HCO3 VBG Total CO2 VBG O2 Saturation VBG Base Excess VBG Lactate Sodium Potassium Chloride Carbon Dioxide Anion Gap BUN Creatinine Estimated GFR/1.73 m2 Glucose Calcium Magnesium 1.7 L Total Bilirubin AST ALT Alkaline Phosphatase Ammonia Total Protein Albumin Lipase 117 Urine Color Urine Clarity Urine pH Ur Specific [place] Urine Protein Urine Ketones Urine Blood Urine Nitrite Urine Bilirubin Urine Urobilinogen Ur Leukocyte Esterase Urine Glucose COVID-19 Source SARS-CoV-2 (PCR) Influenza Type A (PCR) Influenza Type B (PCR) RSV (PCR) 07/08/20 07/08/20 07/08/20 13:18 13:18 13:18 WBC RBC Hgb Hct MCV MCH MCHC RDW Plt Count MPV Immature Gran % Neutrophils % Band Neutrophils % Lymphocytes % Monocytes % Eosinophils % Basophils % Nucleated RBC % Absolute Neutrophils Absolute Lymphocytes Absolute Monocytes Absolute Eosinophils Absolute Basophils RBC Morphology Macrocytosis PT INR VBG pH VBG pCO2 VBG pO2 VBG HCO3 VBG Total CO2 VBG O2 Saturation VBG Base Excess VBG Lactate Cancelled Sodium 131 L Potassium 3.0 L Chloride 90 L Carbon Dioxide 25.9 Anion Gap 15.1 H BUN 3 L Creatinine 0.7 Estimated GFR/1.73 m2 >= 60.00 Glucose 123 H Calcium 7.9 L Magnesium Total Bilirubin 13.0 H AST 302 H ALT 94 H Alkaline Phosphatase 243 H Ammonia Cancelled Total Protein 6.9 Albumin 1.8 L Lipase Urine Color Urine Clarity Urine pH Ur Specific [place] Urine Protein Urine Ketones Urine Blood Urine Nitrite Urine Bilirubin Urine Urobilinogen Ur Leukocyte Esterase Urine Glucose COVID-19 Source SARS-CoV-2 (PCR) Influenza Type A (PCR) Influenza Type B (PCR) RSV (PCR) 07/08/20 07/08/20 07/08/20 13:18 13:18 13:35 WBC 12.45 H RBC 3.59 L Hgb 13.3 L Hct 36.1 L MCV 100.6 H MCH 37.0 H MCHC 36.8 H RDW 15.3 H Plt Count 148 MPV 10.6 Immature Gran % 0.0 Neutrophils % 75.0 Band Neutrophils % 3 Lymphocytes % 13.0 Monocytes % 8.0 Eosinophils % 0.0 Basophils % 1.0 Nucleated RBC % 1 Absolute Neutrophils 9.71 H Absolute Lymphocytes 1.62 Absolute Monocytes 1.00 H Absolute Eosinophils 0.00 Absolute Basophils 0.12 RBC Morphology See below Macrocytosis 2+ PT INR VBG pH 7.52 H VBG pCO2 36 L VBG pO2 107 VBG HCO3 29 H VBG Total CO2 26 VBG O2 Saturation 99 VBG Base Excess 7 H VBG Lactate Sodium Potassium Chloride Carbon Dioxide Anion Gap BUN Creatinine Estimated GFR/1.73 m2 Glucose Calcium Magnesium Total Bilirubin AST ALT Alkaline Phosphatase Ammonia Total Protein Albumin Lipase Urine Color Urine Clarity Urine pH Ur Specific [place] Urine Protein Urine Ketones Urine Blood Urine Nitrite Urine Bilirubin Urine Urobilinogen Ur Leukocyte Esterase Urine Glucose COVID-19 Source Nasopharyx SARS-CoV-2 (PCR) Negative Influenza Type A (PCR) Negative Influenza Type B (PCR) Negative RSV (PCR) Negative 07/08/20 07/08/20 07/08/20 13:55 13:55 18:10 WBC RBC Hgb Hct MCV MCH MCHC RDW Plt Count MPV Immature Gran % Neutrophils % Band Neutrophils % Lymphocytes % Monocytes % Eosinophils % Basophils % Nucleated RBC % Absolute Neutrophils Absolute Lymphocytes Absolute Monocytes Absolute Eosinophils Absolute Basophils RBC Morphology Macrocytosis PT INR VBG pH VBG pCO2 VBG pO2 VBG HCO3 VBG Total CO2 VBG O2 Saturation VBG Base Excess VBG Lactate 5.8 H* Sodium Potassium Chloride Carbon Dioxide Anion Gap BUN Creatinine Estimated GFR/1.73 m2 Glucose Calcium Magnesium Total Bilirubin AST ALT Alkaline Phosphatase Ammonia 54 H Total Protein Albumin Lipase Urine Color Dark yellow Urine Clarity Clear Urine pH 6.5 Ur Specific [place] 1.020 Urine Protein 30 H Urine Ketones Negative Urine Blood Trace-intact H Urine Nitrite Negative Urine Bilirubin Large H Urine Urobilinogen 0.2 Ur Leukocyte Esterase Negative Urine Glucose Negative COVID-19 Source SARS-CoV-2 (PCR) Influenza Type A (PCR) Influenza Type B (PCR) RSV (PCR) Last Vital Signs Temp 37.3 C 07/08/20 18:23 Pulse 124 H 07/08/20 17:46 Resp 29 H 07/08/20 17:50 BP 107/78 07/08/20 17:46 Pulse Ox 92 07/08/20 17:15 COVID-19 Screening Have you, or household traveled for leisure in last 14 days?: No Had IN PERSON contact w/suspected or confirmed C-19 person: No
[2020-07-08 18:47] LABS: Bacteria Negative HPF (Negative); C & S Indicated? No; Casts Negative LPF (Negative); Crystals Negative HPF (Negative); Epithelial Cells Rare HPF (Negative); Mucus Trace (Negative); RBC 0-2 HPF (0-2); WBC 0-2 HPF (0-5)
[2020-07-08] MEDS: PHENobarbital 130 MG/ML VIAL 720 MG IVP (20:00)
[2020-07-08] MEDS: THIAMINE 500 MG in Normal Saline 100 ML 200 MG IVPB (20:51)
[2020-07-08] MEDS: POTASSIUM CHLORIDE 20 MEQ/100 ML BAG 50 MEQ IVPB ×2 (20:55→23:21)
[2020-07-08] MEDS: Pantoprazole 40 MG VIAL IVP (20:55)
[2020-07-08] MEDS: Normal Saline 500 ML IV (20:57)
[2020-07-08] MEDS: Normal Saline Flush 10 ML SYR IVP (20:57)
[2020-07-08] MEDS: guaiFENesin 600 MG TABCR PO (21:11)
[2020-07-08] MEDS: Albuterol/Ipratropium 3 ML UPD VIAL UPD (21:11)
[2020-07-08] MEDS: PIPERACILLIN/TAZO 4.5 GM in Normal Saline 100 ML IVPB (22:08)
[2020-07-08] MEDS: DOXYCYCLINE 100 MG in Normal Saline 100 ML IVPB (22:09)
[2020-07-08] MEDS: POTASSIUM CHLORIDE/D5-0.9%NACL 1,000 ML 150 MEQ IV (22:30)
[2020-07-08 23:36] LABS: *AMPHETAMINES SCREEN URINE Negative (Negative); *BARBITURATES SCREEN URINE Negative (Negative); *BENZODIAZEPINES SCREEN URINE Negative (Negative); Cannabinoids THC Negative (Negative); Cocaine Screen,Urine Negative (Negative); METHADONE URINE SCREEN Negative (Negative); OPIATES URINE SCREEN Negative (Negative)
[2020-07-08 23:38] LABS: Tricyclic Antidepressants Negative (Negative)
[2020-07-09] VITALS (128 sets, daily range): BP systolic 120–163; BP diastolic 71–123; PULSE 91–135; RESP 1–107; TEMP 35.6–37; O2SAT 86–98
[2020-07-09] MEDS: methylPREDNISolone SUCC 125 MG VIAL 60 MG IVP ×4 (00:23→23:50)
[2020-07-09] MEDS: PHENobarbital 130 MG/ML VIAL IVP ×5 (00:24→17:19)
[2020-07-09] MEDS: Nicotine 21 MG/24 HR PATCH TD (01:41)
[2020-07-09] MEDS: PIPERACILLIN/TAZO 4.5 GM in Normal Saline 100 ML IVPB ×3 (06:49→22:40)
[2020-07-09 07:05] LABS: Iron 101 ug/dL (65-175)
[2020-07-09 07:40] LABS: ALT 80 U/L (16-63); AST 254 U/L (15-37); Albumin 1.6 g/dL (3.4-5.0); Alkaline Phosphatase 217 U/L (46-116); Anion Gap 9.1 mmol/L (3-11); BUN 5 mg/dL (7-18); Bilirubin, Total 12.1 mg/dL (0.2-1.0); CO2 27.9 mmol/L (21.0-32.0); CREATININE 0.7 mg/dL (0.70-1.30); Calcium 7.9 mg/dL (8.5-10.1); Chloride 97 mmol/L (98-107); Glucose 148 mg/dL (74-106); Magnesium 1.7 mg/dL (1.8-2.4); Potassium 3.1 mmol/L (3.5-5.1); Sodium 134 mmol/L (136-145); Total Protein 6.2 g/dL (6.4-8.2)
[2020-07-09 07:42] LABS: Ferritin > 2000 ng/mL (26-388)
[2020-07-09] MEDS: Albuterol/Ipratropium 3 ML UPD VIAL UPD ×4 (07:47→21:20)
[2020-07-09 07:50] LABS: Vitamin B12 1522 pg/mL (193-986)
[2020-07-09 07:55] LABS: PHOSPHORUS < 2.0 mg/dL (2.6-4.7)
[2020-07-09 07:57] LABS: LDH 329 U/L (85-227)
[2020-07-09] MEDS: Normal Saline Flush 10 ML SYR IVP ×2 (08:43→13:13)
[2020-07-09] MEDS: MAGNESIUM SULFATE 2 GM/50 ML BAG IVPB (08:47)
[2020-07-09] MEDS: guaiFENesin 600 MG TABCR PO ×2 (08:48→21:21)
[2020-07-09] MEDS: buPROPion-XL 150 MG TABCR PO (08:49)
[2020-07-09] MEDS: Multivitamin TAB 1 TAB PO (08:49)
[2020-07-09] MEDS: Sertraline 50 MG TAB PO (08:49)
[2020-07-09] MEDS: Omeprazole 20 MG CAPCR 40 MG PO (08:49)
[2020-07-09] MEDS: Magnesium Oxide 400 MG TAB PO ×2 (08:50→21:22)
[2020-07-09] MEDS: Metoprolol CR 50 MG TABCR PO (08:50)
[2020-07-09] MEDS: Potassium Chloride 20 MEQ TABCR 40 MEQ PO (08:50)
[2020-07-09] MEDS: Folic Acid 1 MG TAB PO (08:50)
[2020-07-09] MEDS: Thiamine 100 MG TAB PO (08:50)
--- NOTE | 2020-07-09 08:51 | PDOC.CMIN ---
- If Service Date Differs Date of service: 07/09/20 Time of Service: 08:51 Care Management Initial Assess REASON FOR HOSPITALIZATION:: Pneumonia, Alcoholic Hepatitis PAST MEDICAL HISTORY/PAST SURGICAL HISTORY:: ADD, alcohol use disorder, anxiety and depression, chronic insomnia, GERD, hx of opioid use disorder, obesity, seizures PREVIOUS FUNCTIONAL STATUS/SOCIAL/FAMILY SUPPORTS:: Rigoberto lives with his girlfriend in [place], [place]. He has drank heavily since he was [age] years old. He is close with his mother and step father who helped him to get the new job which motivated his sobriety. His biological father is a heavy alcohol user as is his mother and his girlfriend. CURRENT FUNCTIONAL STATUS:: Rigoberto remains in the ICU at this time, he remains on CIWA protocol, broncodialators and IV corticosteroids. ADVANCE DIRECTIVES:: None on file. Has patient been provided with info about the portal/API?: Yes Did the patient sign up for the portal?: No CODE STATUS:: Full Code INSURANCE COVERAGE / FINANCIAL ISSUES:: [employer] CURRENT HOME/COMMUNITY SERVICES/EQUIPMENT:: None, currently. PRIMARY CARE PHYSICIAN:: Gabriela Valerio POTENTIAL DISCHARGE NEEDS:: Review of sobriety supports. PATIENT/FAMILY EDUCATION NEEDS:: Review discharge instructions and follow up plan of care. ANTICIPATED BARRIERS TO DISCHARGE:: None identified at this time. TRANSPORTATION:: Via private vehicle with his girlfriend. PLAN:: Rigoberto continues to be monitored and treated at this time. CM continues to follow. Ata will transport home via private vehicle with his girlfriend.
[2020-07-09] MEDS: Normal Saline 500 ML IV (09:18)
[2020-07-09] MEDS: DOXYCYCLINE 100 MG in Normal Saline 100 ML IVPB ×2 (09:31→21:45)
--- NOTE | 2020-07-09 10:45 | PGE_ITS ---
Date of Service Date of service: 07/09/20 Time of Service: 10:46 Assessment and Plan Assessment and plan (1) Pneumonia: Status: Acute Assessment and plan: Patient has a diffuse pneumonitis possibly viral. Nasal swab for SARS-CoV-2 was negative on admission. Influenza and RSV were also negative. Continue treatment doxycycline and Zosyn. Pharmacist raised concern about doxycycline possibly reducing the antimicrobial effect of Zosyn. Of asked her to look into the likelihood of this and how much it would impact the Zosyn. Continue as needed bronchodilators along with IV corticosteroids. Qualifiers: Laterality: bilateral Lung location: unspecified part of lung (2) Alcohol withdrawal: Status: Acute Assessment and plan: Continue CIWA scale monitoring in titration of phenobarbital to maintain a CIWA score under 8 or a RASS scale of 0 to -1. Continue with multivitamin and folate and thiamine supplementation. Nutritional consultation has been requested. Patient been placed on phosphorus supplementation to correct his hypophosphatemia. Patient's been placed on potassium supplementation to correct his hypokalemia. Ammonia levels will be t reated with lactulose. Serology for acute viral hepatitis has been sent. Ferritin levels greater than 2000 but serum iron levels normal. Qualifiers: Complication of substance-induced condition: uncomplicated Qualified Code(s): F10.230 - Alcohol dependence with withdrawal, uncomplicated (3) Hypokalemia: Status: Acute Assessment and plan: We will give IV supplementation repeat electrolytes in the morning. (4) Abdominal pain: Status: Acute Assessment and plan: Supply with low-dose narcotic analgesics. Tylenol contraindicated in his liver disease and likewise cannot give him an NSAID. Qualifiers: Abdominal location: generalized Qualified Code(s): R10.84 - Generalized abdominal pain (5) Alcoholic hepatitis: Status: Acute Assessment and plan: We will check viral acute hepatitis studies and serum iron studies. Given his fatty liver is presumed that he has acute alcoholic hepatitis. Qualifiers: Ascites presence: without ascites Qualified Code(s): K70.10 - Alcoholic hepatitis without ascites Subjective Subjective Interval history since last seen: Patient still has abdominal pain. He has no cough or sputum production. Still requiring high flow oxygen 6 L/min. He is currently receiving Zosyn and doxycycline for his pneumonia. He is currently being treated for acute alcohol withdrawal with phenobarbital. So far has received a cumulative dose of 1240 mg of phenobarbital. His maximal dose is 2160 based on his ideal body weight. He has been refusing to wear JULIETA hose and SCDs for DVT prophylaxis. I did not put him on enoxaparin or heparin initially because of his severe liver disease and elevated pro time. I did a ybemn-ru-myit ultrasound of his legs he has no evidence of DVT. Pxnyz-ft-wqkh ultrasound of his heart shows normal RV and LV function. LV is hyperdynamic. As far as his alcohol withdrawal his CIWA scores are up to 9 this morning. Earlier this morning was diaphoretic. He remains tachycardic. We will continue to give him phenobarbital at 130-260 mg IV every 30 minutes for RASS scale of 0 to -1 or CIWA scale of 8 or more. Exam Narrative Exam Narrative: Young male who is jaundiced and has scleral icterus. Not in any respiratory distress lying in bed in semifowler position. Lungs are clear to auscultation no wheezes or rhonchi Heart is tachycardic but regular without murmur Abdomen is distended firm but not hard liver is enlarged and tender to palpation. He has active bowel sounds. Extremities without peripheral edema Objective Last Vital Signs Temp 36.7 C 07/09/20 08:30 Pulse 110 H 07/09/20 10:01 Resp 28 H 07/09/20 10:01 BP 128/90 07/09/20 10:01 Pulse Ox 92 07/09/20 10:01 Laboratory Results - last 24 hr 07/08/20 07/08/20 07/08/20 13:17 13:17 13:17 WBC RBC Hgb Hct MCV MCH MCHC RDW Plt Count MPV Immature Gran % Neutrophils % Band Neutrophils % Lymphocytes % Monocytes % Eosinophils % Basophils % Nucleated RBC % Absolute Neutrophils Absolute Lymphocytes Absolute Monocytes Absolute Eosinophils Absolute Basophils RBC Morphology Macrocytosis PT 13.1 H INR 1.3 H VBG pH VBG pCO2 VBG pO2 VBG HCO3 VBG Total CO2 VBG O2 Saturation VBG Base Excess VBG Lactate Sodium Potassium Chloride Carbon Dioxide Anion Gap BUN Creatinine Estimated GFR/1.73 m2 Glucose Calcium Phosphorus Magnesium 1.7 L Iron Ferritin Total Bilirubin Conjugated Bilirubin AST ALT Alkaline Phosphatase Ammonia Lactate Dehydrogenase Total Protein Albumin Lipase 117 Vitamin B12 Urine Color Urine Clarity Urine pH Ur Specific [place] Urine Protein Urine Ketones Urine Blood Urine Nitrite Urine Bilirubin Urine Urobilinogen Ur Leukocyte Esterase Urine RBC Urine WBC Ur Epithelial Cells Urine Crystals Urine Bacteria Urine Casts Urine Mucus Ur Culture Indicated? Urine Glucose Urine Opiates Screen Urine Methadone Screen Ur Barbiturates Screen Ur Tricyclics Screen Ur Amphetamines Screen U Benzodiazepines Scrn Urine Cocaine Screen Ur THC Screen COVID-19 Source SARS-CoV-2 (PCR) Influenza Type A (PCR) Influenza Type B (PCR) RSV (PCR) 07/08/20 07/08/20 07/08/20 13:18 13:18 13:18 WBC RBC Hgb Hct MCV MCH MCHC RDW Plt Count MPV Immature Gran % Neutrophils % Band Neutrophils % Lymphocytes % Monocytes % Eosinophils % Basophils % Nucleated RBC % Absolute Neutrophils Absolute Lymphocytes Absolute Monocytes Absolute Eosinophils Absolute Basophils RBC Morphology Macrocytosis PT INR VBG pH VBG pCO2 VBG pO2 VBG HCO3 VBG Total CO2 VBG O2 Saturation VBG Base Excess VBG Lactate Cancelled Sodium 131 L Potassium 3.0 L Chloride 90 L Carbon Dioxide 25.9 Anion Gap 15.1 H BUN 3 L Creatinine 0.7 Estimated GFR/1.73 m2 >= 60.00 Glucose 123 H Calcium 7.9 L Phosphorus Magnesium Iron Ferritin Total Bilirubin 13.0 H Conjugated Bilirubin AST 302 H ALT 94 H Alkaline Phosphatase 243 H Ammonia Cancelled Lactate Dehydrogenase Total Protein 6.9 Albumin 1.8 L Lipase Vitamin B12 Urine Color Urine Clarity Urine pH Ur Specific [place] Urine Protein Urine Ketones Urine Blood Urine Nitrite Urine Bilirubin Urine Urobilinogen Ur Leukocyte Esterase Urine RBC Urine WBC Ur Epithelial Cells Urine Crystals Urine Bacteria Urine Casts Urine Mucus Ur Culture Indicated? Urine Glucose Urine Opiates Screen Urine Methadone Screen Ur Barbiturates Screen Ur Tricyclics Screen Ur Amphetamines Screen U Benzodiazepines Scrn Urine Cocaine Screen Ur THC Screen COVID-19 Source SARS-CoV-2 (PCR) Influenza Type A (PCR) Influenza Type B (PCR) RSV (PCR) 07/08/20 07/08/20 07/08/20 13:18 13:18 13:35 WBC 12.45 H RBC 3.59 L Hgb 13.3 L Hct 36.1 L MCV 100.6 H MCH 37.0 H MCHC 36.8 H RDW 15.3 H Plt Count 148 MPV 10.6 Immature Gran % 0.0 Neutrophils % 75.0 Band Neutrophils % 3 Lymphocytes % 13.0 Monocytes % 8.0 Eosinophils % 0.0 Basophils % 1.0 Nucleated RBC % 1 Absolute Neutrophils 9.71 H Absolute Lymphocytes 1.62 Absolute Monocytes 1.00 H Absolute Eosinophils 0.00 Absolute Basophils 0.12 RBC Morphology See below Macrocytosis 2+ PT INR VBG pH 7.52 H VBG pCO2 36 L VBG pO2 107 VBG HCO3 29 H VBG Total CO2 26 VBG O2 Saturation 99 VBG Base Excess 7 H VBG Lactate Sodium Potassium Chloride Carbon Dioxide Anion Gap BUN Creatinine Estimated GFR/1.73 m2 Glucose Calcium Phosphorus Magnesium Iron Ferritin Total Bilirubin Conjugated Bilirubin AST ALT Alkaline Phosphatase Ammonia Lactate Dehydrogenase Total Protein Albumin Lipase Vitamin B12 Urine Color Urine Clarity Urine pH Ur Specific [place] Urine Protein Urine Ketones Urine Blood Urine Nitrite Urine Bilirubin Urine Urobilinogen Ur Leukocyte Esterase Urine RBC Urine WBC Ur Epithelial Cells Urine Crystals Urine Bacteria Urine Casts Urine Mucus Ur Culture Indicated? Urine Glucose Urine Opiates Screen Urine Methadone Screen Ur Barbiturates Screen Ur Tricyclics Screen Ur Amphetamines Screen U Benzodiazepines Scrn Urine Cocaine Screen Ur THC Screen COVID-19 Source Nasopharyx SARS-CoV-2 (PCR) Negative Influenza Type A (PCR) Negative Influenza Type B (PCR) Negative RSV (PCR) Negative 07/08/20 07/08/20 07/08/20 13:55 13:55 18:10 WBC RBC Hgb Hct MCV MCH MCHC RDW Plt Count MPV Immature Gran % Neutrophils % Band Neutrophils % Lymphocytes % Monocytes % Eosinophils % Basophils % Nucleated RBC % Absolute Neutrophils Absolute Lymphocytes Absolute Monocytes Absolute Eosinophils Absolute Basophils RBC Morphology Macrocytosis PT INR VBG pH VBG pCO2 VBG pO2 VBG HCO3 VBG Total CO2 VBG O2 Saturation VBG Base Excess VBG Lactate 5.8 H* Sodium Potassium Chloride Carbon Dioxide Anion Gap BUN Creatinine Estimated GFR/1.73 m2 Glucose Calcium Phosphorus Magnesium Iron Ferritin Total Bilirubin Conjugated Bilirubin AST ALT Alkaline Phosphatase Ammonia 54 H Lactate Dehydrogenase Total Protein Albumin Lipase Vitamin B12 Urine Color Dark yellow Urine Clarity Clear Urine pH 6.5 Ur Specific [place] 1.020 Urine Protein 30 H Urine Ketones Negative Urine Blood Trace-intact H Urine Nitrite Negative Urine Bilirubin Large H Urine Urobilinogen 0.2 Ur Leukocyte Esterase Negative Urine RBC 0-2 Urine WBC 0-2 Ur Epithelial Cells Rare Urine Crystals Negative Urine Bacteria Negative Urine Casts Negative Urine Mucus Trace Ur Culture Indicated? No Urine Glucose Negative Urine Opiates Screen Urine Methadone Screen Ur Barbiturates Screen Ur Tricyclics Screen Ur Amphetamines Screen U Benzodiazepines Scrn Urine Cocaine Screen Ur THC Screen COVID-19 Source SARS-CoV-2 (PCR) Influenza Type A (PCR) Influenza Type B (PCR) RSV (PCR) 07/08/20 07/08/20 07/09/20 19:26 20:00 06:15 WBC RBC Hgb Hct MCV MCH MCHC RDW Plt Count MPV Immature Gran % Neutrophils % Band Neutrophils % Lymphocytes % Monocytes % Eosinophils % Basophils % Nucleated RBC % Absolute Neutrophils Absolute Lymphocytes Absolute Monocytes Absolute Eosinophils Absolute Basophils RBC Morphology Macrocytosis PT INR VBG pH VBG pCO2 VBG pO2 VBG HCO3 VBG Total CO2 VBG O2 Saturation VBG Base Excess VBG Lactate Sodium 134 L Potassium 3.1 L Chloride 97 L Carbon Dioxide 27.9 Anion Gap 9.1 BUN 5 L Creatinine 0.7 Estimated GFR/1.73 m2 >= 60.00 Glucose 148 H Calcium 7.9 L Phosphorus < 2.0 L Magnesium 1.7 L Iron Ferritin > 2000 H Total Bilirubin 12.1 H Conjugated Bilirubin 10.0 H AST 254 H ALT 80 H Alkaline Phosphatase 217 H Ammonia Lactate Dehydrogenase Total Protein 6.2 L Albumin 1.6 L Lipase Vitamin B12 Urine Color Cancelled Urine Clarity Cancelled Urine pH Cancelled Ur Specific [place] Cancelled Urine Protein Cancelled Urine Ketones Cancelled Urine Blood Cancelled Urine Nitrite Cancelled Urine Bilirubin Cancelled Urine Urobilinogen Cancelled Ur Leukocyte Esterase Cancelled Urine RBC Urine WBC Ur Epithelial Cells Urine Crystals Urine Bacteria Urine Casts Urine Mucus Ur Culture Indicated? Urine Glucose Cancelled Urine Opiates Screen Negative Urine Methadone Screen Negative Ur Barbiturates Screen Negative Ur Tricyclics Screen Negative Ur Amphetamines Screen Negative U Benzodiazepines Scrn Negative Urine Cocaine Screen Negative Ur THC Screen Negative COVID-19 Source SARS-CoV-2 (PCR) Influenza Type A (PCR) Influenza Type B (PCR) RSV (PCR) 07/09/20 07/09/20 06:15 06:15 WBC RBC Hgb Hct MCV MCH MCHC RDW Plt Count MPV Immature Gran % Neutrophils % Band Neutrophils % Lymphocytes % Monocytes % Eosinophils % Basophils % Nucleated RBC % Absolute Neutrophils Absolute Lymphocytes Absolute Monocytes Absolute Eosinophils Absolute Basophils RBC Morphology Macrocytosis PT INR VBG pH VBG pCO2 VBG pO2 VBG HCO3 VBG Total CO2 VBG O2 Saturation VBG Base Excess VBG Lactate Sodium Potassium Chloride Carbon Dioxide Anion Gap BUN Creatinine Estimated GFR/1.73 m2 Glucose Calcium Phosphorus Magnesium Iron 101 Ferritin Total Bilirubin Conjugated Bilirubin AST ALT Alkaline Phosphatase Ammonia Lactate Dehydrogenase 329 H Total Protein Albumin Lipase Vitamin B12 1522 H Urine Color Urine Clarity Urine pH Ur Specific [place] Urine Protein Urine Ketones Urine Blood Urine Nitrite Urine Bilirubin Urine Urobilinogen Ur Leukocyte Esterase Urine RBC Urine WBC Ur Epithelial Cells Urine Crystals Urine Bacteria Urine Casts Urine Mucus Ur Culture Indicated? Urine Glucose Urine Opiates Screen Urine Methadone Screen Ur Barbiturates Screen Ur Tricyclics Screen Ur Amphetamines Screen U Benzodiazepines Scrn Urine Cocaine Screen Ur THC Screen COVID-19 Source SARS-CoV-2 (PCR) Influenza Type A (PCR) Influenza Type B (PCR) RSV (PCR) Objective Narrative Objective Narrative: Eerwv-er-aemf ultrasound of his heart shows hyperdynamic LV with no wall motion abnormalities and RV also appears to be hyperdynamic and not enlarged. Zlfdh-ke-bhmv ultrasound of his lungs shows diffuse bilateral B-lines worse in the lower lung tai than the upper lung tai. Lower extremities shows normal compression of femoral veins and popliteal veins bilaterally.
[2020-07-09] MEDS: Lactulose 20 GM/30 ML CUP PO (13:11)
[2020-07-09] MEDS: Metoprolol CR 25 MG TABCR PO (13:12)
--- NOTE | 2020-07-09 13:58 | PHA.REVIEW ---
Pharmacy Admission Review - Admission Clinical Review (Last Reviewed 07/08/20 @ 20:12 by Naeem Madden) Pneumonia (Acute) Alcoholic hepatitis (Acute) Alcohol withdrawal (Acute) Hypokalemia (Acute) Abdominal pain (Acute) No Known Allergies Allergy (Unverified 01/01/19 09:17) Height 5 ft 10 in Weight 109 kg - Renal Dosing Renal Dosing: BUN 5 mg/dL (7-18) L 07/09/20 06:15 Creatinine 0.7 mg/dL (0.70-1.30) 07/09/20 06:15 Medications needing adjustments: Reviewed (Crcl ~128 mL/min current meds okay) - Anticoagulation Anticoagulation: Hgb 13.3 g/dL (13.5-17.5) L 07/08/20 13:18 Hct 36.1 % (40.0-50.0) L 07/08/20 13:18 Plt Count 148 10^3/uL (130-400) 07/08/20 13:18 INR 1.3 (0.9-1.1) H 07/08/20 13:17 Creatinine 0.7 mg/dL (0.70-1.30) 07/09/20 06:15 DVT Prohphylaxis: Reviewed (TEDs and SCDs ordered) - Opiate Usage Evaluate Pain Scale/Pains Meds: N/A - Relevant Labs Sodium 134 mmol/L (136-145) L 07/09/20 06:15 Potassium 3.1 mmol/L (3.5-5.1) L 07/09/20 06:15 Chloride 97 mmol/L (98-107) L 07/09/20 06:15 Phosphorus < 2.0 mg/dL (2.6-4.7) L 07/09/20 06:15 Magnesium 1.7 mg/dL (1.8-2.4) L 07/09/20 06:15 Electrolytes, C-Reactive P, ESR: Reviewed (mag, K+ and phos replacement ordered) - DM Control DM Control: Glucose 148 mg/dL (74-106) H 07/09/20 06:15 Insulin Dosing: N/A (BG elevated some so far this admission, do DM noted in patients medical history, A1c from 2019 within normal limits.) - Heart Failure/CA EF%, SHONNA's, B-Blockers, Diuretics: N/A - BP Control BP Control: Blood Pressure [Left Radial 150/93 Artery] Blood Pressure 131/90 Blood Pressure 128/90 Blood Pressure 128/86 Blood Pressure 154/98 Blood Pressure 142/89 Blood Pressure 160/92 Blood Pressure 163/100 Blood Pressure 160/96 If elevated: Reviewed (metoprolol dose increased this morning) - Qtc Review If Elevated: N/A - IV to PO Switch IV Medications: Reviewed - Home Meds Home Med List reviewed: Reviewed (naltrexone (ordered then discontinued), trazodone) - Current meds Current Medication Order Review: Reviewed - Comments Comments/Follow Ups: Watch BP, K+, mag, phos, phenobarb dosing (make sure don't go over max dosing), and for med changes. Antibiotic Activity - Pharmacy Antibiotic Review Pharmacy Antibiotic Activity: Reviewed, no change (Doxy and zosyn to cover for pneumonia. Talked to provider about possibly trying to separate dosing as much as possible due to interaction. Blood and sputum cultures pending.)
[2020-07-09 14:05] LABS: Potassium 3.3 mmol/L (3.5-5.1)
--- NOTE | 2020-07-09 15:00 | W.NUTCONSULT ---
Date of service: 07/09/20 Time of Service: 15:00 Nutritional Consult ASSESSMENT: 40 year old male admitted iwth alcoholic hepatitis, ETOH withdrawl with hx of poor PO intake and low albumin levels. Labs indicate elevated ferritin (>2000) most likely due to excessive ETOH abuse, low albumin and class 1 obesity. Met with Ata in ICU today to discuss optimal diet for liver dysfunction. Ata was not interested/or able to engage at this time. Provided written material and contact information for follow up as outpatient. INTERVENTION: continue repletion with MVI, thiamin and folic acid. Continue low sodium diet. Will be available prn. Time Spent in Nutritional Counseling and Treatment: 5
[2020-07-09] MEDS: POTASSIUM CHLORIDE 20 MEQ/100 ML BAG 50 MEQ IVPB (21:21)
[2020-07-10] VITALS (58 sets, daily range): BP systolic 103–146; BP diastolic 60–98; PULSE 94–125; RESP 1–36; TEMP 36.6–37.2; O2SAT 86–95
[2020-07-10] MEDS: Melatonin 3 MG TAB 9 MG PO ×2 (00:08→20:27)
[2020-07-10] MEDS: PHENobarbital 130 MG/ML VIAL IVP ×2 (00:09→11:53)
[2020-07-10] MEDS: Heparin 5,000 UNITS/ML VIAL 5000 UNITS SC ×2 (00:12→08:21)
[2020-07-10] MEDS: POTASSIUM CHLORIDE 20 MEQ/100 ML BAG 50 MEQ IVPB (00:36)
[2020-07-10] MEDS: PIPERACILLIN/TAZO 4.5 GM in Normal Saline 100 ML IVPB ×3 (06:31→21:55)
[2020-07-10 06:37] LABS: Absolute Lymphocyte Count 0.71 10^3/uL (1.2-3.4); Basophils % 0.1; Eosinophils % 0.1; HCT 33.3 % (40.0-50.0); HGB 11.7 g/dL (13.5-17.5); Immature Grans % 0.7; Lymphocytes % 4.9; MCH 36.6 pg (27.0-33.0); MCHC 35.1 % (32.0-36.0); MCV 104.1 fL (80-95); MPV 11.9 fL (8.0-11.0); Monocytes % 4.4; Neutrophils % 89.8; Nucleated RBC 0 %; Platelet Count 152 10^3/uL (130-400); RDW 16.2 % (11.8-14.1); RDW-SD 62.2 fL; WBC 14.42 10^3/uL (4.4-10.8)
[2020-07-10 06:40] LABS: Absolute Basophil Count 0.01 10^3/uL (0.0-0.2); Absolute Eosinophil Count 0.01 10^3/uL (0.0-0.7); Absolute Monocyte Count 0.63 10^3/uL (0.1-0.8); Absolute Neutrophil Count 12.95 10^3/uL (1.2-6.7)
[2020-07-10 06:56] LABS: PHOSPHORUS 3.1 mg/dL (2.6-4.7)
[2020-07-10 07:00] LABS: ALT 74 U/L (16-63); AST 232 U/L (15-37); Albumin 1.5 g/dL (3.4-5.0); Alkaline Phosphatase 208 U/L (46-116); Anion Gap 8.9 mmol/L (3-11); BUN 10 mg/dL (7-18); CO2 27.1 mmol/L (21.0-32.0); CREATININE 0.6 mg/dL (0.70-1.30); Chloride 100 mmol/L (98-107); Glucose 113 mg/dL (74-106); Potassium 3.4 mmol/L (3.5-5.1); Sodium 136 mmol/L (136-145); Total Protein 5.9 g/dL (6.4-8.2)
[2020-07-10] MEDS: Albuterol/Ipratropium 3 ML UPD VIAL UPD ×4 (08:12→20:21)
[2020-07-10] MEDS: Omeprazole 20 MG CAPCR 40 MG PO (08:20)
[2020-07-10] MEDS: methylPREDNISolone SUCC 125 MG VIAL 60 MG IVP (08:20)
[2020-07-10] MEDS: Magnesium Oxide 400 MG TAB PO ×2 (08:21→20:22)
[2020-07-10] MEDS: Folic Acid 1 MG TAB PO (08:21)
[2020-07-10] MEDS: guaiFENesin 600 MG TABCR PO ×2 (08:21→20:22)
[2020-07-10] MEDS: Lactulose 20 GM/30 ML CUP PO (08:21)
[2020-07-10] MEDS: buPROPion-XL 150 MG TABCR PO (08:21)
[2020-07-10] MEDS: Metoprolol CR 50 MG TABCR 75 MG PO (08:22)
[2020-07-10] MEDS: Thiamine 100 MG TAB PO (08:22)
[2020-07-10] MEDS: Multivitamin TAB 1 TAB PO (08:22)
[2020-07-10] MEDS: Sertraline 50 MG TAB PO (08:22)
[2020-07-10] MEDS: DOXYCYCLINE 100 MG in Normal Saline 100 ML IVPB ×2 (09:26→20:20)
[2020-07-10 10:23] LABS: Procalcitonin 0.4 ng/mL
[2020-07-10] MEDS: Furosemide 40 MG/4 ML VIAL IVP (10:33)
--- NOTE | 2020-07-10 10:45 | W.PM.PROGNOT ---
Date of Service Date of service: 07/10/20 Time of Service: 10:45 Assessment and Plan Assessment and plan (1) Pneumonia: Status: Acute Assessment and plan: Bilateral infiltrates on CXR; may also have component of pulmonary edema. Procal 0.4; low prob for sepsis. Monitor. WBC count 12.45 > 14.42. Monitor Cont Zosyn and Vancomycin. Lasix 40mg po x 1. IV methylprednisolone 60mg Q8H initiated on admission; decrease to 40mg IV Q12H. Qualifiers: Laterality: bilateral Lung location: unspecified part of lung Pneumonia type: due to unspecified organism Qualified Code(s): J18.9 - Pneumonia, unspecified organism (2) Alcoholic hepatitis: Status: Acute Assessment and plan: + hepatic steatosis. Monitor LFT's. Maddrey score of 22.7; good prognosis range. Avoid Etoh. ABD US mentioned small amount of ascites. I felt there was a fluid wave so suspect more? Qualifiers: Ascites presence: without ascites Qualified Code(s): K70.10 - Alcoholic hepatitis without ascites (3) Alcohol withdrawal: Status: Acute Assessment and plan: Cont CIWA monitoring. Phenobarbital prn. Thiamine, folate, MVI. Qualifiers: Complication of substance-induced condition: uncomplicated Qualified Code(s): F10.230 - Alcohol dependence with withdrawal, uncomplicated (4) Hypokalemia: Status: Acute Assessment and plan: Cont replacement as necessary. Subjective Subjective Patient reports: feels better, pain is less (RUQ) and afebrile; denies nausea, vomiting and shortness of breath Exam Const General: cooperative and no acute distress Nutritional Appearance: obese Orientation: awake, oriented to person and oriented to place Eyes Sclera: scleral abnormality bilaterally (icteric) Pupils: PERRL Resp Effort & Inspection: normal respiratory effort Auscultation: clear to auscultation bilaterally and diminished lung sounds Cardio Rate: regular rate Rhythm: regular rhythm Heart Sounds: S1 normal and S2 normal GI Inspection: obesity Palpation: soft, hepatomegaly, tender in the RUQ; with no rebound tenderness and ascites (+ fluid wave) Auscultation: normal bowel sounds Skin General skin exam: other (spider hemagiomas on abd/exts.) Rashes: no rashes Neuro General: patient awake, patient oriented x3 and no focal motor deficits Speech: speech normal Extrem General: no pedal edema and no calf tenderness Psych Appearance: grossly normal Speech and Movement: speech and movement normal Affect: blunted Objective Last Vital Signs Temp 37.2 C 07/10/20 08:01 Pulse 124 H 07/10/20 08:35 Resp 24 07/10/20 08:35 BP 120/84 07/10/20 08:01 Pulse Ox 93 07/10/20 09:34 Laboratory Results - last 24 hr 07/09/20 07/10/20 07/10/20 13:48 06:20 06:20 WBC RBC Hgb Hct MCV MCH MCHC RDW Plt Count MPV Immature Gran % Neutrophils % Lymphocytes % Monocytes % Eosinophils % Basophils % Nucleated RBC % Absolute Neutrophils Absolute Lymphocytes Absolute Monocytes Absolute Eosinophils Absolute Basophils Sodium 136 Potassium 3.3 L 3.4 L Chloride 100 Carbon Dioxide 27.1 Anion Gap 8.9 BUN 10 Creatinine 0.6 L Estimated GFR/1.73 m2 >= 60.00 Glucose 113 H Calcium 8.0 L Phosphorus 3.1 Total Bilirubin 13.0 H AST 232 H ALT 74 H Alkaline Phosphatase 208 H Total Protein 5.9 L Albumin 1.5 L Procalcitonin 07/10/20 07/10/20 06:20 06:20 WBC 14.42 H RBC 3.20 L Hgb 11.7 L Hct 33.3 L MCV 104.1 H MCH 36.6 H MCHC 35.1 RDW 16.2 H Plt Count 152 MPV 11.9 H Immature Gran % 0.7 Neutrophils % 89.8 Lymphocytes % 4.9 Monocytes % 4.4 Eosinophils % 0.1 Basophils % 0.1 Nucleated RBC % 0 Absolute Neutrophils 12.95 H Absolute Lymphocytes 0.71 L Absolute Monocytes 0.63 Absolute Eosinophils 0.01 Absolute Basophils 0.01 Sodium Potassium Chloride Carbon Dioxide Anion Gap BUN Creatinine Estimated GFR/1.73 m2 Glucose Calcium Phosphorus Total Bilirubin AST ALT Alkaline Phosphatase Total Protein Albumin Procalcitonin 0.4
[2020-07-10 11:50] LABS: Lactate 2.6 mmol/L (0.6-1.4)
--- NOTE | 2020-07-10 13:22 | PDOC.CMPRO ---
Care Management Progress Note S/O: Ata remains on CIWA protocol, IV ABX, diuretics. LFTs are being monitored closely. O2 running at 4L at this time. He is sleeping throughout the day when CM attempts to meet with him. Nutrition consult today; Ata unable to engage. CM continues to follow. A: 40 year old male admitted to [facility] 07/08/20 for Pneumonia, Alcoholic hepatitis P: Ata continues to be closely monitored and treated at this time. CM continues to follow. Ata will transport home via private vehicle with his .
[2020-07-10] MEDS: methylPREDNISolone SUCC 125 MG VIAL 40 MG IVP (17:42)
[2020-07-10] MEDS: Normal Saline Flush 10 ML SYR IVP (20:28)
[2020-07-11] VITALS (60 sets, daily range): BP systolic 101–133; BP diastolic 63–84; PULSE 96–128; RESP 1–41; TEMP 36.4–36.9; O2SAT 83–99
[2020-07-11] MEDS: Heparin 5,000 UNITS/ML VIAL 5000 UNITS SC ×3 (00:16→23:45)
[2020-07-11] MEDS: Albuterol/Ipratropium 3 ML UPD VIAL UPD ×7 (00:16→23:45)
[2020-07-11] MEDS: PHENobarbital 130 MG/ML VIAL IVP (01:07)
--- NOTE | 2020-07-11 04:37 | NUR.NOTE ---
Nursing Note: Found a Nicotine patch on the patient's pillow that was placed on the patient's left shoulder on 07/09/2020 at 01:41H. Nicotine patch discarded in the sharp safe box.
[2020-07-11] MEDS: methylPREDNISolone SUCC 125 MG VIAL 40 MG IVP ×2 (05:46→17:55)
[2020-07-11 06:15] LABS: Abs Immature Grans 0.14 10^3/uL (0.0-0.06); Absolute Basophil Count 0.03 10^3/uL (0.0-0.2); Absolute Eosinophil Count 0.01 10^3/uL (0.0-0.7); Absolute Lymphocyte Count 1.43 10^3/uL (1.2-3.4); Absolute Monocyte Count 0.58 10^3/uL (0.1-0.8); Absolute Neutrophil Count 11.39 10^3/uL (1.2-6.7); Basophils % 0.2; Eosinophils % 0.1; HCT 33.3 % (40.0-50.0); HGB 11.7 g/dL (13.5-17.5); Lymphocytes % 10.5; MCH 36.6 pg (27.0-33.0); MCHC 35.1 % (32.0-36.0); MCV 104.1 fL (80-95); MPV 11.6 fL (8.0-11.0); Monocytes % 4.3; Neutrophils % 83.9; Nucleated RBC 1 %; Platelet Count 175 10^3/uL (130-400); RDW 16.7 % (11.8-14.1); RDW-SD 63.7 fL; WBC 13.58 10^3/uL (4.4-10.8)
[2020-07-11] MEDS: PIPERACILLIN/TAZO 4.5 GM in Normal Saline 100 ML IVPB ×4 (06:15→22:08)
[2020-07-11 06:23] LABS: Ammonia 23 umol/L (11-32)
[2020-07-11 06:27] LABS: Albumin 1.6 g/dL (3.4-5.0); Alkaline Phosphatase 205 U/L (46-116); Anion Gap 7.9 mmol/L (3-11); BUN 14 mg/dL (7-18); CO2 28.1 mmol/L (21.0-32.0); CREATININE 0.8 mg/dL (0.70-1.30); Calcium 8.1 mg/dL (8.5-10.1); Chloride 94 mmol/L (98-107); Glucose 96 mg/dL (74-106); Sodium 130 mmol/L (136-145)
[2020-07-11 06:28] LABS: ALT 75 U/L (16-63); AST 204 U/L (15-37); Magnesium 2.1 mg/dL (1.8-2.4)
[2020-07-11 06:30] LABS: Potassium 2.9 mmol/L (3.5-5.1)
[2020-07-11] MEDS: guaiFENesin 600 MG TABCR PO ×2 (08:44→21:14)
[2020-07-11] MEDS: Omeprazole 20 MG CAPCR 40 MG PO (08:44)
[2020-07-11] MEDS: Folic Acid 1 MG TAB PO (08:44)
[2020-07-11] MEDS: POTASSIUM CHLORIDE 10 MEQ/100 ML BAG 100 MEQ IVPB ×2 (08:44→10:21)
[2020-07-11] MEDS: buPROPion-XL 150 MG TABCR PO (08:44)
[2020-07-11] MEDS: DOXYCYCLINE 100 MG in Normal Saline 100 ML IVPB ×2 (08:44→21:13)
[2020-07-11] MEDS: Magnesium Oxide 400 MG TAB PO ×2 (08:45→21:15)
[2020-07-11] MEDS: Multivitamin TAB 1 TAB PO (08:45)
[2020-07-11] MEDS: Potassium Chloride 20 MEQ TABCR PO (08:45)
[2020-07-11] MEDS: Thiamine 100 MG TAB PO (08:45)
[2020-07-11] MEDS: Metoprolol CR 50 MG TABCR 75 MG PO (08:45)
[2020-07-11] MEDS: Sertraline 50 MG TAB PO (08:45)
--- NOTE | 2020-07-11 13:54 | W.PM.PROGNOT ---
Date of Service Date of service: 07/11/20 Time of Service: 10:29 Assessment and Plan Assessment and plan (1) Pneumonia: Status: Acute Assessment and plan: On Zosyn and Doxycycline. Still requiring 6L supplemental O2. Using Acapella device. Encourage upright positioning / up in chair. Sputum with normal mc as well as a fungus; ID pending. Blood cxs negative to date WBC count is marginally down from previous day. Follow. CXR tomorrow if supplemental O2 demands not improving. Qualifiers: Pneumonia type: due to unspecified organism Laterality: bilateral Lung location: unspecified part of lung Qualified Code(s): J18.9 - Pneumonia, unspecified organism (2) Alcoholic hepatitis: Status: Acute Assessment and plan: Bilirubin has increased, LFT's improving. Abd pain improving. Monitor Etoh avoidance. Qualifiers: Ascites presence: without ascites Qualified Code(s): K70.10 - Alcoholic hepatitis without ascites (3) Alcohol withdrawal: Status: Acute Assessment and plan: He has been administered the maximum amount of phenobarbital that should be required to aleviate significant withdrawal symptoms. PRN atarax for agitation. Qualifiers: Complication of substance-induced condition: uncomplicated Qualified Code(s): F10.230 - Alcohol dependence with withdrawal, uncomplicated (4) Hypokalemia: Status: Acute Assessment and plan: Replacing and monitoring. Subjective Subjective Patient reports: diarrhea (On lactulose for elevated ammonia.) and afebrile; denies nausea and vomiting Interval history since last seen: Pt endorses less abd discomfort. Tolerating small amounts of po intake. Exam Narrative Exam Narrative: Jaundiced male sitting upright in bed. Const General: cooperative and no acute distress Nutritional Appearance: obese Orientation: alert, oriented to person and oriented to place Eyes Sclera: scleral abnormality bilaterally other (icteric) Resp Effort & Inspection: normal respiratory effort Auscultation: clear to auscultation bilaterally and diminished lung sounds Cardio Rate: regular rate Rhythm: regular rhythm Heart Sounds: S1 normal and S2 normal GI Inspection: distended Palpation: soft and tender (Mild in RUQ) Skin General skin exam: other (spider hemagiomas on exts and abd.) Extrem General: no pedal edema and no calf tenderness Objective Last Vital Signs Temp 36.5 C 07/11/20 12:38 Pulse 99 H 07/11/20 12:38 Resp 30 H 07/11/20 12:38 BP 116/74 07/11/20 12:38 Pulse Ox 92 07/11/20 12:38 Laboratory Results - last 24 hr 07/11/20 07/11/20 07/11/20 05:55 05:55 05:55 WBC 13.58 H RBC 3.20 L Hgb 11.7 L Hct 33.3 L MCV 104.1 H MCH 36.6 H MCHC 35.1 RDW 16.7 H Plt Count 175 MPV 11.6 H Immature Gran % 1.0 Neutrophils % 83.9 Lymphocytes % 10.5 Monocytes % 4.3 Eosinophils % 0.1 Basophils % 0.2 Nucleated RBC % 1 Absolute Neutrophils 11.39 H Absolute Lymphocytes 1.43 Absolute Monocytes 0.58 Absolute Eosinophils 0.01 Absolute Basophils 0.03 Sodium 130 L Potassium 2.9 L Chloride 94 L Carbon Dioxide 28.1 Anion Gap 7.9 BUN 14 Creatinine 0.8 Estimated GFR/1.73 m2 >= 60.00 Glucose 96 Calcium 8.1 L Magnesium 2.1 Total Bilirubin 14.0 H AST 204 H ALT 75 H Alkaline Phosphatase 205 H Ammonia 23 Total Protein 6.0 L Albumin 1.6 L
--- NOTE | 2020-07-11 16:39 | PDOC.CMPRO ---
Care Management Progress Note S/O: Ata remains on CIWA protocol, IV ABX, diuretics. LFTs are being monitored closely. O2 running at 6L at this time, increased from yesterday. He is sleeping throughout the day when CM attempts to meet with him. CM continues to follow. A: 40 year old male admitted to [facility] 07/08/20 for Pneumonia, Alcoholic hepatitis P: Ata continues to be closely monitored and treated at this time. CM continues to follow. Ata will transport home via private vehicle with his .
[2020-07-11] MEDS: Normal Saline Flush 10 ML SYR IVP (17:55)
[2020-07-11] MEDS: Melatonin 3 MG TAB 9 MG PO (21:14)
[2020-07-11 22:58] LABS: Legionella Ag Detection Urine Negative (Negative)
[2020-07-12] VITALS (44 sets, daily range): BP systolic 103–129; BP diastolic 64–79; PULSE 91–126; RESP 1–38; TEMP 36.6–38.3; O2SAT 87–98
--- NOTE | 2020-07-12 | DI.RAD_ITS ---
EXAM: XR CHEST 2V PA LATERAL CLINICAL HISTORY: pneumonia. TECHNIQUE: 2D digital imaging was performed. COMPARISON: CR XR PORTABLE CHEST AP from 07/08/2020 FINDINGS: Heart size is normal. The mediastinum is not widened. Right hemidiaphragm is again noted be elevated. There is minimal findings significant radiographic improvement in the appearance of the bilateral inf iltrates. Prep some improvement in the left lower lobe although this may be related to a slightly im proved breath hold. No pleural effusions. Nasal oxygen noted. IMPRESSION: Persistent infiltrates. No pleural effusions. DATA REPOSITORY: RADIATION DOSE DELIVERED:
[2020-07-12] MEDS: Fluticasone NASAL SPRAY 16 GM BTL NS ×2 (01:17→09:10)
[2020-07-12] MEDS: Albuterol/Ipratropium 3 ML UPD VIAL UPD ×2 (04:58→07:48)
[2020-07-12] MEDS: Normal Saline Flush 10 ML SYR IVP ×3 (04:59→21:23)
[2020-07-12] MEDS: PIPERACILLIN/TAZO 4.5 GM in Normal Saline 100 ML IVPB ×3 (05:00→21:41)
[2020-07-12] MEDS: methylPREDNISolone SUCC 125 MG VIAL 40 MG IVP ×2 (05:00→17:49)
[2020-07-12 06:55] LABS: Abs Immature Grans 0.12 10^3/uL (0.0-0.06); Absolute Monocyte Count 0.65 10^3/uL (0.1-0.8); Basophils % 0.2; Eosinophils % 0.2; HCT 32.1 % (40.0-50.0); HGB 11.3 g/dL (13.5-17.5); Immature Grans % 0.9; Lymphocytes % 8.4; MCH 36.5 pg (27.0-33.0); MCHC 35.2 % (32.0-36.0); MCV 103.5 fL (80-95); MPV 11.5 fL (8.0-11.0); Neutrophils % 85.3; Nucleated RBC 1 %; Platelet Count 173 10^3/uL (130-400); RDW-SD 62.8 fL; WBC 12.93 10^3/uL (4.4-10.8)
[2020-07-12 06:56] LABS: Absolute Basophil Count 0.03 10^3/uL (0.0-0.2); Absolute Eosinophil Count 0.03 10^3/uL (0.0-0.7); Absolute Lymphocyte Count 1.09 10^3/uL (1.2-3.4); Absolute Neutrophil Count 11.03 10^3/uL (1.2-6.7)
[2020-07-12 07:02] LABS: ALT 72 U/L (16-63); AST 178 U/L (15-37); Albumin 1.5 g/dL (3.4-5.0); Alkaline Phosphatase 186 U/L (46-116); Anion Gap 9.7 mmol/L (3-11); BUN 13 mg/dL (7-18); Bilirubin, Total 14.9 mg/dL (0.2-1.0); CO2 26.3 mmol/L (21.0-32.0); CREATININE 0.8 mg/dL (0.70-1.30); Calcium 7.8 mg/dL (8.5-10.1); Chloride 95 mmol/L (98-107); Glucose 85 mg/dL (74-106); Sodium 131 mmol/L (136-145); Total Protein 5.7 g/dL (6.4-8.2)
[2020-07-12] MEDS: Heparin 5,000 UNITS/ML VIAL 5000 UNITS SC ×3 (08:09→23:40)
[2020-07-12] MEDS: Sertraline 50 MG TAB PO (08:10)
[2020-07-12] MEDS: Omeprazole 20 MG CAPCR 40 MG PO (08:10)
[2020-07-12] MEDS: Folic Acid 1 MG TAB PO (08:10)
[2020-07-12] MEDS: Metoprolol CR 50 MG TABCR 75 MG PO (08:11)
[2020-07-12] MEDS: buPROPion-XL 150 MG TABCR PO (08:11)
[2020-07-12] MEDS: Potassium Chloride 20 MEQ TABCR PO ×2 (08:11→21:42)
[2020-07-12] MEDS: guaiFENesin 600 MG TABCR PO ×2 (08:11→21:18)
[2020-07-12] MEDS: Thiamine 100 MG TAB PO (08:12)
[2020-07-12] MEDS: Magnesium Oxide 400 MG TAB PO ×2 (08:12→21:18)
[2020-07-12] MEDS: Multivitamin TAB 1 TAB PO (08:12)
[2020-07-12] MEDS: POTASSIUM CHLORIDE 10 MEQ/100 ML BAG 100 MEQ IVPB ×2 (08:33→11:16)
[2020-07-12 08:35] LABS: Prealbumin 9 mg/dL (20-40)
[2020-07-12] MEDS: DOXYCYCLINE 100 MG in Normal Saline 100 ML IVPB (08:35)
[2020-07-12] MEDS: Normal Saline 500 ML IV (09:11)
[2020-07-12 11:40] LABS: Hepatitis A Antibody IgM Negative (Negative); Hepatitis B Core Antibody Negative (Negative); Hepatitis B surface Ag Negative (Negative); Hepatitis C Ab w Rflx HCV PCR Negative (Negative)
--- NOTE | 2020-07-12 15:17 | PDOC.CMPRO ---
Care Management Progress Note S/O: Ata remains in ICU, being monitored closely. He will have a repeat CXR today, per provider. O2 running at 4L at this time, decreased from yesterday. He is eating well, using incentive spirometry. He continues to sleep throughout the day, CM will continue to attempt discussion around sobriety supports. CM continues to follow. A: 40 year old male admitted to [facility] 07/08/20 for Pneumonia, Alcoholic hepatitis P: Ata continues to be closely monitored and treated at this time. CM continues to follow. Ata will transport home via private vehicle with his .
--- NOTE | 2020-07-12 20:28 | PGE_ITS ---
Date of Service Date of service: 07/12/20 Time of Service: 09:32 Assessment and Plan Assessment and plan (1) Pneumonia: Status: Acute Assessment and plan: WBC count gradually improving. Supplemental O2 decreased to 4L NC Cont Zosyn; stopped doxycycline. Qualifiers: Pneumonia type: due to unspecified organism Laterality: bilateral Lung location: unspecified part of lung Qualified Code(s): J18.9 - Pneumonia, unspecified organism (2) Alcoholic hepatitis: Status: Acute Assessment and plan: AST and ALT trending down. Total bilirubin has increased to 14.9. Clinically feeling better. Plan to consult GI at [facility] [place] tomorrow. Qualifiers: Ascites presence: without ascites Qualified Code(s): K70.10 - Alcoholic hepatitis without ascites (3) Alcohol withdrawal: Status: Acute Assessment and plan: No longer in withdrawal. Now oriented x 3 and alert. Qualifiers: Complication of substance-induced condition: uncomplicated Qualified Code(s): F10.230 - Alcohol dependence with withdrawal, uncomplicated (4) Hypokalemia: Status: Acute Assessment and plan: Replacing as needed. Subjective Subjective Patient reports: no new complaints, feels better, tolerating a regular diet, bowel movement and afebrile; denies nausea and vomiting Exam Const General: cooperative and no acute distress Nutritional Appearance: obese Orientation: alert and oriented x3 [facility] Head: normocephalic and atraumatic Eyes Sclera: abnormal sclerae (scleral icterus) Pupils: PERRL Resp Effort & Inspection: normal respiratory effort Auscultation: clear to auscultation bilaterally Cardio Rate: regular rate Rhythm: regular rhythm Heart Sounds: S1 normal and S2 normal GI Palpation: soft and tender (mild upper abd) Auscultation: normal bowel sounds Skin General skin exam: other (Generalized jaundice) Rashes: no rashes Extrem General: no pedal edema and no calf tenderness Psych Mental Status: mental status grossly normal Speech and Movement: speech and movement normal Affect: blunted Objective Last Vital Signs Temp 36.7 C 07/12/20 12:00 Pulse 101 H 07/12/20 12:43 Resp 21 07/12/20 12:43 BP 107/68 07/12/20 12:43 Pulse Ox 94 07/12/20 14:19 Laboratory Results - last 24 hr 07/09/20 07/09/20 07/10/20 06:15 06:15 10:40 WBC RBC Hgb Hct MCV MCH MCHC RDW Plt Count MPV Immature Gran % Neutrophils % Lymphocytes % Monocytes % Eosinophils % Basophils % Nucleated RBC % Absolute Neutrophils Absolute Lymphocytes Absolute Monocytes Absolute Eosinophils Absolute Basophils Sodium Potassium Chloride Carbon Dioxide Anion Gap BUN Creatinine Estimated GFR/1.73 m2 Glucose Calcium Total Bilirubin AST ALT Alkaline Phosphatase Total Protein Albumin Prealbumin 9 L Hepatitis A IgM Ab Negative Hep Bs Antigen Negative Hep B Core Total Ab Negative Hepatitis C Antibody Negative Urine Legionella Ag Negative 07/12/20 07/12/20 06:20 06:20 WBC 12.93 H RBC 3.10 L Hgb 11.3 L Hct 32.1 L MCV 103.5 H MCH 36.5 H MCHC 35.2 RDW 17.0 H Plt Count 173 MPV 11.5 H Immature Gran % 0.9 Neutrophils % 85.3 Lymphocytes % 8.4 Monocytes % 5.0 Eosinophils % 0.2 Basophils % 0.2 Nucleated RBC % 1 Absolute Neutrophils 11.03 H Absolute Lymphocytes 1.09 L Absolute Monocytes 0.65 Absolute Eosinophils 0.03 Absolute Basophils 0.03 Sodium 131 L Potassium 3.0 L Chloride 95 L Carbon Dioxide 26.3 Anion Gap 9.7 BUN 13 Creatinine 0.8 Estimated GFR/1.73 m2 >= 60.00 Glucose 85 Calcium 7.8 L Total Bilirubin 14.9 H AST 178 H ALT 72 H Alkaline Phosphatase 186 H Total Protein 5.7 L Albumin 1.5 L Prealbumin Hepatitis A IgM Ab Hep Bs Antigen Hep B Core Total Ab Hepatitis C Antibody Urine Legionella Ag
[2020-07-12] MEDS: Levalbuterol 0.63 MG/3 ML UPD VIAL UPD (21:18)
[2020-07-12] MEDS: Ipratropium 0.5 MG/2.5 ML UPD VIAL UPD (21:22)
[2020-07-12] MEDS: Melatonin 3 MG TAB 9 MG PO (23:46)
[2020-07-13] VITALS (23 sets, daily range): BP systolic 106–120; BP diastolic 62–76; PULSE 90–117; RESP 1–32; TEMP 36.6–37.1; O2SAT 90–96
[2020-07-13 00:18] LABS: Streptococcus Pneumoniae Ag, U Negative (Negative)
[2020-07-13] MEDS: PIPERACILLIN/TAZO 4.5 GM in Normal Saline 100 ML IVPB ×3 (06:20→21:57)
[2020-07-13] MEDS: methylPREDNISolone SUCC 125 MG VIAL 40 MG IVP ×2 (06:22→18:19)
[2020-07-13 06:58] LABS: Abs Immature Grans 0.18 10^3/uL (0.0-0.06); Absolute Eosinophil Count 0.06 10^3/uL (0.0-0.7); Absolute Lymphocyte Count 1.09 10^3/uL (1.2-3.4); Absolute Monocyte Count 0.67 10^3/uL (0.1-0.8); Basophils % 0.1; Eosinophils % 0.4; HCT 33.2 % (40.0-50.0); HGB 11.7 g/dL (13.5-17.5); Immature Grans % 1.3; Lymphocytes % 7.8; MCH 37.6 pg (27.0-33.0); MCHC 35.2 % (32.0-36.0); MCV 106.8 fL (80-95); Monocytes % 4.8; Neutrophils % 85.6; Nucleated RBC 0 %; Platelet Count 174 10^3/uL (130-400); RBC 3.11 10^6/uL (4.36-5.78); RDW 17.7 % (11.8-14.1); RDW-SD 67.9 fL; WBC 13.95 10^3/uL (4.4-10.8)
[2020-07-13 07:17] LABS: Absolute Basophil Count 0.01 10^3/uL (0.0-0.2); Absolute Neutrophil Count 11.94 10^3/uL (1.2-6.7); INR 1.5 (0.9-1.1); Prothrombin Time 14.7 sec (9.3-11.0)
[2020-07-13 07:23] LABS: PHOSPHORUS 2.4 mg/dL (2.6-4.7)
[2020-07-13 07:29] LABS: ALT 68 U/L (16-63); AST 155 U/L (15-37); Albumin 1.4 g/dL (3.4-5.0); Alkaline Phosphatase 178 U/L (46-116); BUN 11 mg/dL (7-18); CREATININE 0.6 mg/dL (0.70-1.30); Calcium 7.9 mg/dL (8.5-10.1); Chloride 99 mmol/L (98-107); Glucose 80 mg/dL (74-106); Potassium 3.4 mmol/L (3.5-5.1); Sodium 134 mmol/L (136-145); Total Protein 5.6 g/dL (6.4-8.2)
[2020-07-13 07:32] LABS: Bilirubin, Total 15.6 mg/dL (0.2-1.0)
[2020-07-13 07:37] LABS: Anisocytosis 1+; Diff Comment RBC Morph Reviewed; Macrocytosis 1+; Poikilocytes 1+; Polychromasia Present
[2020-07-13] MEDS: Heparin 5,000 UNITS/ML VIAL 5000 UNITS SC ×2 (08:14→16:01)
[2020-07-13] MEDS: Normal Saline Flush 10 ML SYR IVP ×2 (08:16→20:45)
[2020-07-13] MEDS: Omeprazole 20 MG CAPCR 40 MG PO (08:16)
[2020-07-13] MEDS: buPROPion-XL 150 MG TABCR PO (08:17)
[2020-07-13] MEDS: Folic Acid 1 MG TAB PO (08:17)
[2020-07-13] MEDS: Potassium Chloride 20 MEQ TABCR PO ×2 (08:17→20:44)
[2020-07-13] MEDS: Metoprolol CR 50 MG TABCR 75 MG PO (08:17)
[2020-07-13] MEDS: Multivitamin TAB 1 TAB PO (08:17)
[2020-07-13] MEDS: guaiFENesin 600 MG TABCR PO ×2 (08:17→20:44)
[2020-07-13] MEDS: Thiamine 100 MG TAB PO (08:18)
[2020-07-13] MEDS: Sertraline 50 MG TAB PO (08:18)
[2020-07-13] MEDS: Magnesium Oxide 400 MG TAB PO ×2 (08:18→20:44)
[2020-07-13] MEDS: Fluticasone NASAL SPRAY 16 GM BTL NS (08:19)
[2020-07-13] MEDS: Levalbuterol 0.63 MG/3 ML UPD VIAL UPD ×3 (09:36→20:44)
[2020-07-13] MEDS: Ipratropium 0.5 MG/2.5 ML UPD VIAL UPD ×3 (09:37→20:44)
--- NOTE | 2020-07-13 10:37 | PDOC.CMPRO ---
- If Service Date Differs Date of service: 07/13/20 Time of Service: 10:38 Care Management Progress Note S/O:Ata continues to improve. His WBC is still elevated but stable and he remains afebrile. Ata's liver enzymes are also slowly coming down, although his bilirubin continues to rise. He will be [place] [facility] [place] post discharge.Ata was down-graded to med-surg today and moved out to the floor. CM continiues to follow. A: 40 year old male admitted to [facility] 07/08/20 for Pneumonia, Alcoholic hepatitis P: Ata will likely be discharged home with no new services, although he would benefit from treatment for alcohol/substance abuse. He will follow up with his PCP and discharge plan of care . CM continues to support patient and family and assess for discharge planning needs. Ata will transport home via private vehicle with his .
--- NOTE | 2020-07-13 16:49 | PGE_ITS ---
Date of Service Date of service: 07/13/20 Time of Service: 16:54 Assessment and Plan Assessment and plan (1) Pneumonia: Status: Acute Assessment and plan: WBC count continues to gradually improve. Supplemental O2 demands are improving. Cont Zosyn Consider d/c tomorrow on Augmentin Qualifiers: Pneumonia type: due to unspecified organism Laterality: bilateral Lung location: unspecified part of lung Qualified Code(s): J18.9 - Pneumonia, unspecified organism (2) Alcoholic hepatitis: Status: Acute Assessment and plan: LFT's improving. Bilirubin increasing. Discussed with Dr. Booth GI at [facility]. Planning to have him follow up with GI there. Abstinence from alcohol stressed. Qualifiers: Ascites presence: without ascites Qualified Code(s): K70.10 - Alcoholic hepatitis without ascites (3) Alcohol withdrawal: Status: Acute Assessment and plan: Withdrawal completed. Qualifiers: Complication of substance-induced condition: uncomplicated Qualified Code(s): F10.230 - Alcohol dependence with withdrawal, uncomplicated (4) Hypokalemia: Status: Acute Assessment and plan: Replacing; now 3.4. Subjective Subjective Interval history since last seen: He endorses feeling better. Ambulating in hallway with standby assist. Eating w/o N/V. Abd pain improving. No Fever. Supplemental O2 requirements have improved. No cough/sputum Exam Const General: cooperative and no acute distress Nutritional Appearance: obese Orientation: alert and oriented x3 Eyes Sclera: scleral abnormality (icteric) Pupils: PERRL Resp Effort & Inspection: normal respiratory effort Auscultation: clear to auscultation bilaterally and diminished lung sounds Cardio Rate: regular rate Rhythm: regular rhythm Heart Sounds: S1 normal and S2 normal GI Inspection: distended Palpation: soft and tender (mild RUQ tenderness) Auscultation: normal bowel sounds Extrem General: no pedal edema and no calf tenderness Objective Last Vital Signs Temp 36.8 C 07/13/20 15:31 Pulse 92 H 07/13/20 15:31 Resp 18 07/13/20 15:31 BP 106/62 07/13/20 15:31 Pulse Ox 91 L 07/13/20 15:31 Laboratory Results - last 24 hr 07/09/20 07/13/20 07/13/20 16:50 06:15 06:15 WBC 13.95 H RBC 3.11 L Hgb 11.7 L Hct 33.2 L MCV 106.8 H D MCH 37.6 H MCHC 35.2 RDW 17.7 H Plt Count 174 MPV 11.0 Immature Gran % 1.3 Neutrophils % 85.6 Lymphocytes % 7.8 Monocytes % 4.8 Eosinophils % 0.4 Basophils % 0.1 Nucleated RBC % 0 Absolute Neutrophils 11.94 H Absolute Lymphocytes 1.09 L Absolute Monocytes 0.67 Absolute Eosinophils 0.06 Absolute Basophils 0.01 RBC Morphology See below Polychromasia Present Poikilocytosis 1+ Anisocytosis 1+ Macrocytosis 1+ PT INR Sodium 134 L Potassium 3.4 L Chloride 99 Carbon Dioxide 27.0 Anion Gap 8.0 BUN 11 Creatinine 0.6 L Estimated GFR/1.73 m2 >= 60.00 Glucose 80 Calcium 7.9 L Phosphorus Total Bilirubin 15.6 H AST 155 H ALT 68 H Alkaline Phosphatase 178 H Total Protein 5.6 L Albumin 1.4 L Hep Bs Antigen Hep Bs Antibody Hep Bs Antibody, Quant Hep B Core Total Ab Hepatitis C Antibody Ur Strep pneumoniae Ag Negative 07/13/20 07/13/20 07/13/20 06:15 06:15 Unknown WBC RBC Hgb Hct MCV MCH MCHC RDW Plt Count MPV Immature Gran % Neutrophils % Lymphocytes % Monocytes % Eosinophils % Basophils % Nucleated RBC % Absolute Neutrophils Absolute Lymphocytes Absolute Monocytes Absolute Eosinophils Absolute Basophils RBC Morphology Polychromasia Poikilocytosis Anisocytosis Macrocytosis PT 14.7 H INR 1.5 H Sodium Potassium Chloride Carbon Dioxide Anion Gap BUN Creatinine Estimated GFR/1.73 m2 Glucose Calcium Phosphorus 2.4 L Total Bilirubin AST ALT Alkaline Phosphatase Total Protein Albumin Hep Bs Antigen Cancelled Hep Bs Antibody Cancelled Hep Bs Antibody, Quant Cancelled Hep B Core Total Ab Cancelled Hepatitis C Antibody Cancelled Ur Strep pneumoniae Ag
[2020-07-13] MEDS: Melatonin 3 MG TAB 9 MG PO (21:56)
[2020-07-13 23:33] LABS: Mycoplasma Pneumoniae PCR Negative; Specimen source SPUTUM
[2020-07-14] VITALS (13 sets, daily range): BP systolic 103–121; BP diastolic 64–76; PULSE 82–105; RESP 1–20; TEMP 35–36.9; O2SAT 88–99
[2020-07-14] MEDS: methylPREDNISolone SUCC 125 MG VIAL 40 MG IVP (05:39)
[2020-07-14] MEDS: PIPERACILLIN/TAZO 4.5 GM in Normal Saline 100 ML IVPB ×3 (05:39→22:01)
[2020-07-14] MEDS: Levalbuterol 0.63 MG/3 ML UPD VIAL UPD ×2 (08:06→14:06)
[2020-07-14] MEDS: Ipratropium 0.5 MG/2.5 ML UPD VIAL UPD ×2 (08:07→14:07)
[2020-07-14] MEDS: Fluticasone NASAL SPRAY 16 GM BTL NS (08:52)
[2020-07-14] MEDS: Folic Acid 1 MG TAB PO (08:53)
[2020-07-14] MEDS: Heparin 5,000 UNITS/ML VIAL 5000 UNITS SC ×2 (08:53→16:13)
[2020-07-14] MEDS: Metoprolol CR 50 MG TABCR 75 MG PO (08:53)
[2020-07-14] MEDS: Omeprazole 20 MG CAPCR 40 MG PO (08:54)
[2020-07-14] MEDS: guaiFENesin 600 MG TABCR PO ×2 (08:54→21:00)
[2020-07-14] MEDS: Thiamine 100 MG TAB PO (08:54)
[2020-07-14] MEDS: Multivitamin TAB 1 TAB PO (08:54)
[2020-07-14] MEDS: Magnesium Oxide 400 MG TAB PO ×2 (08:54→20:58)
[2020-07-14] MEDS: buPROPion-XL 150 MG TABCR PO (08:54)
[2020-07-14] MEDS: Potassium Chloride 20 MEQ TABCR PO ×2 (08:55→20:59)
[2020-07-14] MEDS: Sertraline 50 MG TAB PO (08:55)
--- NOTE | 2020-07-14 10:14 | RESPIRATORY ---
RT spoke with pt today about possibly needing O2 on discharge. Pt states that he is not sure he will be quitting smoking and does not want to blow himself up, RT agreed that smoking while on oxygen is dangerous and advised that pt quit smoking. RT and pt went for a 350ft walk without O2 to check pulse oximetry during exercise. Pt's SpO2 during walk on RA was 85%, pt was short of breath and stated that he can usually walk much further with minimal shortness of breath and this is not normal for him.
[2020-07-14] MEDS: predniSONE 20 MG TAB 30 MG PO (12:04)
[2020-07-14] MEDS: Normal Saline 500 ML 30 ML IV (14:28)
[2020-07-14] MEDS: Normal Saline Flush 10 ML SYR IVP ×2 (14:28→21:02)
--- NOTE | 2020-07-14 16:02 | PGE_ITS ---
Date of Service Date of service: 07/14/20 Time of Service: 16:02 Assessment and Plan Assessment and plan (1) Pneumonia: Status: Acute Assessment and plan: WBC count slowly improving. Respiratory status gradually improving but continues to have O2 desaturation with ambulation. On Zosyn; change to Augmentin on discharge Qualifiers: Pneumonia type: due to unspecified organism Laterality: bilateral Lung location: unspecified part of lung Qualified Code(s): J18.9 - Pneumonia, unspecified organism (2) Alcoholic hepatitis: Status: Acute Assessment and plan: Improving LFT's. Bilirubin continues to slowly rise Monitor Qualifiers: Ascites presence: without ascites Qualified Code(s): K70.10 - Alcoholic hepatitis without ascites (3) Alcohol withdrawal: Status: Acute Assessment and plan: Completed withdrawal Alcohol abstinence stressed. Qualifiers: Complication of substance-induced condition: uncomplicated Qualified Code(s): F10.230 - Alcohol dependence with withdrawal, uncomplicated (4) Respiratory insufficiency: Status: Acute Assessment and plan: Titrate supplemental O2 to maintain saturations above 90% Factors effecting resp status; tobacco abuse syndrome with likely COPD (undx), pneumonia, obesity hypoventilation syndrome likely. Working on respiratory toilet, ambulating, antibiotics for PNA, Duonebs. He would not like to discharge on supplemental oxygen and it could be a dangerous situation if he were to be since he doesn't plan on quitting smoking. Subjective Subjective Patient reports: no new complaints, feels better, bowel movement, shortness of b reath (with activity ) and afebrile; denies nausea and vomiting Exam Const General: cooperative and no acute distress Nutritional Appearance: obese Orientation: alert and oriented x3 Eyes Sclera: scleral abnormality (icteric) Pupils: PERRL Resp Effort & Inspection: other (mild shortness of air with conversation) Auscultation: diminished lung sounds Cardio Rate: regular rate Rhythm: regular rhythm Heart Sounds: S1 normal and S2 normal GI Inspection: distended and obesity Palpation: soft and tender in the epigastrum and in the RUQ Skin General skin exam: other (generalized jaundice) Neuro General: no focal motor deficits Cognition: normal cognition Speech: speech normal Extrem General: no pedal edema and no calf tenderness Psych Appearance: grossly normal Speech and Movement: speech and movement normal Affect: normal affect Attitude: cooperative Objective Last Vital Signs Temp 36.9 C 07/14/20 15:44 Pulse 86 07/14/20 15:44 Resp 18 07/14/20 15:44 BP 119/74 07/14/20 15:44 Pulse Ox 91 L 07/14/20 15:44 Laboratory Results - last 24 hr 07/11/20 16:50 M. pneumoniae Source Sputum M. pneumoniae (PCR) Negative
--- NOTE | 2020-07-14 17:02 | PDOC.CMPRO ---
Care Management Progress Note S/O: Ata was laying in bed when CM met with him. He was holding his side, but reporting he thought it hurt because he had been laying on it. He reported continued fatigue. He reviewed past treatment and shared how he didn't find anything very helpful. He identified a year of sobriety along the same timeline as meeting his , who does not drink. He reported he would think about attachment to a softball coach. CM continues to follow. A: 40 year old male admitted to [facility] 07/08/20 for Pneumonia, Alcoholic hepatitis P: Ata will likely be discharged home with no new services, although he would benefit from treatment for alcohol/ANNA. He will follow up with his PCP and discharge plan of care . CM continues to support patient and family and assess for discharge planning needs. Ata will transport home via private vehicle with his .
[2020-07-14] MEDS: hydrOXYzine HCL 25 MG TAB 50 MG PO (20:59)
[2020-07-14] MEDS: Melatonin 3 MG TAB 9 MG PO (20:59)
[2020-07-15] VITALS (8 sets, daily range): BP systolic 108–127; BP diastolic 71–80; PULSE 90–113; RESP 4–24; TEMP 36.4–37.5; O2SAT 89–95
[2020-07-15] MEDS: PIPERACILLIN/TAZO 4.5 GM in Normal Saline 100 ML IVPB (05:22)
[2020-07-15] MEDS: Normal Saline Flush 10 ML SYR IVP (05:22)
[2020-07-15 06:52] LABS: Abs Immature Grans 0.25 10^3/uL (0.0-0.06); Absolute Basophil Count 0.03 10^3/uL (0.0-0.2); Absolute Monocyte Count 0.97 10^3/uL (0.1-0.8); Basophils % 0.2; Eosinophils % 0.4; HCT 34.9 % (40.0-50.0); Immature Grans % 1.8; Lymphocytes % 9.6; MCH 36.9 pg (27.0-33.0); MCHC 34.4 % (32.0-36.0); MCV 107.4 fL (80-95); MPV 10.8 fL (8.0-11.0); Monocytes % 7.1; Neutrophils % 80.9; Nucleated RBC 0 %; Platelet Count 251 10^3/uL (130-400); RBC 3.25 10^6/uL (4.36-5.78); RDW 17.7 % (11.8-14.1); RDW-SD 69.6 fL; WBC 13.61 10^3/uL (4.4-10.8)
[2020-07-15 07:01] LABS: Absolute Eosinophil Count 0.05 10^3/uL (0.0-0.7); Absolute Lymphocyte Count 1.31 10^3/uL (1.2-3.4); Absolute Neutrophil Count 11.01 10^3/uL (1.2-6.7)
[2020-07-15 07:04] LABS: ALT 78 U/L (16-63); AST 149 U/L (15-37); Albumin 1.4 g/dL (3.4-5.0); Alkaline Phosphatase 165 U/L (46-116); Anion Gap 9.4 mmol/L (3-11); BUN 10 mg/dL (7-18); Bilirubin, Total 13.6 mg/dL (0.2-1.0); CO2 23.6 mmol/L (21.0-32.0); CREATININE 0.6 mg/dL (0.70-1.30); Calcium 7.6 mg/dL (8.5-10.1); Chloride 100 mmol/L (98-107); Glucose 82 mg/dL (74-106); Potassium 3.6 mmol/L (3.5-5.1); Sodium 133 mmol/L (136-145); Total Protein 5.6 g/dL (6.4-8.2)
[2020-07-15] MEDS: Ipratropium 0.5 MG/2.5 ML UPD VIAL UPD (08:13)
[2020-07-15] MEDS: Levalbuterol 0.63 MG/3 ML UPD VIAL UPD (08:14)
[2020-07-15] MEDS: Folic Acid 1 MG TAB PO (08:34)
[2020-07-15] MEDS: Metoprolol CR 50 MG TABCR 75 MG PO (08:34)
[2020-07-15] MEDS: buPROPion-XL 150 MG TABCR PO (08:34)
[2020-07-15] MEDS: Omeprazole 20 MG CAPCR 40 MG PO (08:34)
[2020-07-15] MEDS: guaiFENesin 600 MG TABCR PO (08:34)
[2020-07-15] MEDS: Potassium Chloride 20 MEQ TABCR PO (08:35)
[2020-07-15] MEDS: predniSONE 20 MG TAB 30 MG PO (08:35)
[2020-07-15] MEDS: Multivitamin TAB 1 TAB PO (08:35)
[2020-07-15] MEDS: Magnesium Oxide 400 MG TAB PO (08:35)
[2020-07-15] MEDS: Sertraline 50 MG TAB PO (08:35)
[2020-07-15] MEDS: Thiamine 100 MG TAB PO (08:36)
[2020-07-15] MEDS: Heparin 5,000 UNITS/ML VIAL 5000 UNITS SC (08:36)
[2020-07-15] MEDS: Fluticasone NASAL SPRAY 16 GM BTL NS (08:37)
--- NOTE | 2020-07-15 10:11 | CMDISCH_ITS ---
- If Service Date Differs Date of service: 07/15/20 Time of Service: 16:25 LACE Index Scoring Tool - Questions: Length of Stay (in days): 7 - 13 Acuity (Admit via E.D.?): Yes Comorbidities: Mild Liver/Renal Disease E.D. Visits: 2 - Answers: Total Score: 12 Risk of Readmission: High Risk Care Management Discharge Reason for Hospitalization: Pneumonia, Alcoholic Hepatitis Discharge Plan: Ata will return home when ready per MD. He will follow up wit h his PCP and plan of care as prescribed. He will transport via private vehicle with his . Patient/Family Education Needs: Review discharge instructions, discuss Ask Me T hree.
--- NOTE | 2020-07-15 10:54 | W.PM.DS.N ---
Date of service: 07/15/20 Time of Service: 10:54 DS: Diagnosis Discharge Diagnosis (1) Pneumonia: Status: Acute (2) Alcoholic hepatitis: Status: Acute (3) Alcohol withdrawal: Status: Acute (4) Respiratory insufficiency: Status: Acute Discharge Plan Disposition Patient Disposition: HOME Condition: Improving Discharge Details Reason For Visit: PNEUMONIA, ALCOHOLIC HEPATITIS Admit Date/Time: 07/08/20 15:23 Admit Provider: Naeem Madden Attending Provider: Naeem Madden Primary Care Provider: Gabriela Valerio [facility] Course Hospital Course: This is a 40-year-old alcoholic with history of alcohol withdrawal seizures and essential hypertension and a 1 pack/day smoker who drinks up to 12 beers per day presents with shortness of breath, fatigue nausea, vomiting and generalized weakness and nonproductive cough. Patient states his last drink was just prior to arrival drinking about 36 ounces of beer. Although he states that he is cut down his drinking last couple days because of nausea and vomiting. He has had increasing abdominal bloating and jaundice over the last several days. He denies any melena or hematochezia and no hematemesis. He has had no Covid exposure that he is aware. Patient underwent an evaluation in the ER included chest x-ray and abdominal ultrasound as well as routine labs. Of note patient was seen in the emergency department July 04, 2020 at that time he came in with complaints of 3 weeks of nausea and vomiting upper abdominal pain and reported noticing blood in his urine. At that time he had no fever or chills and denies any illicit drug use. During that presentation he was noted to be icteric and jaundiced. And he underwent an evaluation for his abdominal pain including labs and a CTA of his abdomen. It was suspected that he has alcoholic hepatitis or ascites. At that time the CTh showed diffuse mucosal thickening of the colon suggestive of pancolitis he had no vascular pathology of the abdominal aorta or its branches and he had a trace of ascites along with mild edema of the gastric antrum and hepatomegaly with diffuse hepatic steatosis. Is recommended he be admitted the hospital and treated with antibiotics and IV fluids but the patient refused admission. And now his work-up in the ER today included chest x-ray and abdominal ultrasound. Ultrasound demonstrates hepatomegaly and hepatic steatosis with trace amount of perihepatic ascites. He has mild gallbladder wall thickening but no evidence of cholelithiasis. No pericholecystic fluid was seen. Chest x-ray however showed multifocal airspace opacities suspicious for pneumonia. Nasopharyngeal swab was obtained for SARS-CoV-2 and was negative. He is also negative for influenza type a and B and RSV as well. Laboratory studies shows a leukocytosis of 12,400 and he has macrocytic changes in his red cells. Blood gas was done and shows mild respiratory alkalosis with pH 7.52 and a PCO2 of 36 with a PO2 of 107. Blood lactate was elevated at 5.8. Coagulation studies show an elevated pro time of 13.1 and INR 1.3. CMP demonstrates hyponatremia with serum sodium of 131 and a potassium of 3.0 and a chloride of 90 with an anion gap of 15.1. BUN and creatinine normal at 3 and 0.7. Total bilirubin is elevated at 13.0 with an AST of 302, ALT 94, alkaline phosphatase 243 and an ammonia level of 54. Lipase is normal at 117. Patient was given a dose of azithromycin 500 mg and Zosyn 3.375 g to treat his pneumonia and was given a dose of Solu-Medrol 125 mg. He was given a bolus of saline 1000 mL. Patient is now admitted to the intensive care unit for treatment of community-acquired pneumonia along with acute alcohol withdrawal and alcoholic hepatitis. 1. Alcohol withdrawal: Phenobarbitrol protocol initiated. Withdrawal was well managed with no significant associated events. 2. Alcoholic hepatitis: His LFT's improved. Bilirubin peaked at 15.6 then, on day of discharge, decreased to 13.6. 3. Pneumonia. His WBC count remained modestly elevated at 13.61. His supplemental O2 needs improved and will not require supplemental O2 on discharge. Augmentin 875mg po BID for 10 doses. Prednisone taper. Strongly encouraged ongoing cessation of alcohol. He will be contacted by [facility] for follow up. Home Meds and New Rx's Prescriptions: New prednisone 20 mg Tablet See Rx Instructions .ROUTE .COMPLEX Qty: 15 RF: 0 amoxicillin-pot clavulanate [Augmentin] 875-125 mg tablet 1 tab PO BID Qty: 10 RF: 0 albuterol sulfate 90 mcg/actuation aerosol powdr breath activated 2 inh inhalation Q6H PRNQty: 1 RF: 0 Continued sertraline 50 mg tablet 50 mg PO DAILY RF: 0 metoprolol succinate 50 mg tablet extended release 24 hr 50 mg PO DAILY RF: 0 naltrexone 50 mg tablet 50 mg PO DAILY RF: 0 omeprazole 40 mg capsule,delayed release(DR/EC) 40 mg PO DAILY RF: 0 trazodone 150 mg tablet 150 mg PO HS RF: 0 betamethasone dipropionate 0.05 % cream 1 applic TOPICAL PRN PRNRF: 0 bupropion HCl 150 mg tablet extended release 24 hr 150 mg PO DAILY RF: 0 ondansetron 4 mg tablet,disintegrating 4 mg PO Q8H PRN (Reason: nausea and vomiting) Qty: 30 RF: 0 Discharge Instructions Instructions: Alcoholic Hepatitis (DC) Stand Alone Forms: Nursing Discharge Form Referrals: Gabriela Valerio MD [Primary Care Provider] - 07/26/20 3:00 pm Activity:: Activity as Tolerated Equipment/Supplies:: No Equipment Needed Diet:: low fat Discharge Orders Discharge Orders: Discharge Order (Routine); Ordered 07/15/20 Ordered By: Dionicio Dawson DS: Summary Time Spent with Patient providing and/or coordinating discharge services: Greater than 30 minutes Status at Discharge Functional status at discharge: independent ambulation Overall status at discharge: patient is progressing back to baseline Mental Status: mental status grossly normal Speech and Movement: speech and movement normal Mood: congruent mood Affect: normal affect Exam Narrative Exam Narrative: Pt ambulating in hallway unassisted with RT. Able to converse w/o dyspnea. Const General: cooperative and no acute distress Nutritional Appearance: obese Orientation: alert and oriented x3 Eyes Sclera: scleral abnormality (icteric) Pupils: PERRL Resp Effort & Inspection: normal respiratory effort Auscultation: clear to auscultation bilaterally and diminished lung sounds Cardio Rate: regular rate Rhythm: regular rhythm Heart Sounds: S1 normal and S2 normal GI Inspection: distended and obesity Palpation: soft, hepatomegaly and tender (Mild RUQ. ) Skin General skin exam: other (Jaundiced.) Rashes: no rashes Neuro General: no focal motor deficits Gait: normal gait Extrem General: no pedal edema and no calf tenderness Psych Mental Status: mental status grossly normal Speech and Movement: speech and movement normal Mood: congruent mood Affect: normal affect DS: Data Vitals/I&O Vitals and I&O: Vital Signs Temperature 37.5 C 07/15/20 07:59 Temperature Source Tympanic 07/15/20 07:59 Pulse 110 H 07/15/20 07:59 Pulse Rhythm Regular 07/15/20 00:47 Pulse 114 H 07/13/20 08:42 Respiratory Rate 20 07/15/20 07:59 Respiratory Effort Non-Labored 07/15/20 00:47 Respiratory Depth Normal 07/15/20 00:47 Respiratory Pattern Normal 07/14/20 21:00 Blood Pressure 117/80 07/15/20 07:59 Blood Pressure Mean 77 07/13/20 08:42 Blood Pressure Position Supine 07/13/20 08:30 Pulse Oximetry 95 07/15/20 07:59 Oxygen Delivery Method Room Air 07/15/20 07:59 Oxygen Flow Rate 0 07/15/20 07:59 Pain Level 0 07/15/20 07:59 Comment 07/11/20 15:07 Intake & Output 07/14/20 07/14/20 07/15/20 11:59 23:59 11:59 Intake Total 580 / 943.283 363.283 / 943.283 220 / 220 Balance 580 / 943.283 363.283 / 943.283 220 / 220 Weight 108.1 kg 107.2 kg Intake: IV 220 / 383.283 163.283 / 383.283 100 / 100 Oral 360 / 560 200 / 560 120 / 120 Other: Urine Appearance Clear Clear Clear Data Completed and Pending Labs on day of discharge: Labs from last 24 hours 07/15/20 07/15/20 06:20 06:20 WBC 13.61 H RBC 3.25 L Hgb 12.0 L Hct 34.9 L MCV 107.4 H MCH 36.9 H MCHC 34.4 RDW 17.7 H Plt Count 251 MPV 10.8 Immature Gran % 1.8 Neutrophils % 80.9 Lymphocytes % 9.6 Monocytes % 7.1 Eosinophils % 0.4 Basophils % 0.2 Nucleated RBC % 0 Absolute Neutrophils 11.01 H Absolute Lymphocytes 1.31 Absolute Monocytes 0.97 H Absolute Eosinophils 0.05 Absolute Basophils 0.03 Sodium 133 L Potassium 3.6 Chloride 100 Carbon Dioxide 23.6 Anion Gap 9.4 BUN 10 Creatinine 0.6 L Estimated GFR/1.73 m2 >= 60.00 Glucose 82 Calcium 7.6 L Total Bilirubin 13.6 H AST 149 H ALT 78 H Alkaline Phosphatase 165 H Total Protein 5.6 L [facility] 1.4 L [facility] History ADD (attention deficit disorder) Alcohol abuse Anxiety and depression Chronic insomnia GERD (gastroesophageal reflux disease) History of opioid abuse Obesity Seizures Family History Father Alcohol abuse Mother Alcohol abuse Social History Smoking/Tobacco Use Status: Current every day Tobacco Type: cigarettes Smoking packs per day: 1 Smoking cigarettes per day: 20.0 Smoking risk assessment performed?: Yes Alcohol Intake: current Alcohol Intake frequency: 3 or more drinks per day Alcohol type: beer Details: Drinks a 12 pack of beer per day Drug use: Never Details: last beer at 1315 today Household members: spouse Housing: apartment 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
== END 2020-07-15 12:57 | disposition home or self-care (01) | DRG 194 ==
LOC: ER 17:53 → ICU 21:14 → MS 07-13 14:46
PROVIDERS: Family Medicine; Admitting Provider Internal Medicine; Emergency Provider Physician Assistant; PCP Family Medicine; Visit Provider Internal Medicine
DX: J18.9 Pneumonia, unspecified organism (principal); F10.239 Alcohol dependence with withdrawal, unspecified; K70.11 Alcoholic hepatitis with ascites; R06.89 Other abnormalities of breathing; I10 Essential (primary) hypertension; F17.210 Nicotine dependence, cigarettes, uncomplicated; Z20.822 Contact with and (suspected) exposure to COVID-19; E87.6 Hypokalemia; K76.0 Fatty (change of) liver, not elsewhere classified; F98.8 Other specified behavioral and emotional disorders with onset usually occurring in childhood and adolescence; F41.8 Other specified anxiety disorders; F51.04 Psychophysiologic insomnia; K21.9 Gastro-esophageal reflux disease without esophagitis; F11.11 Opioid abuse, in remission; E66.9 Obesity, unspecified
CPT/HCPCS: 36415; 80048; 80053; 80076; 80307; 82805; 83690; 84145; 86704; 86709; 86803; 87040; 87340; 87449; 93005; 96361; 96365; 96368; 96375; 99223; 99232; 99233; 99239; 99291; 71045; 71046; 76700; 81003; 81015; 82140; 82607; 82728; 83540; 83605; 83615; 83735; 84100; 84132; 84134; 85025; 85610; 87070; 87205; 87581; 87899; 93010; 94640; 94667; 94668; J0456; J1644; J1940; J2543; J2560; J2765; J2930; J3480; J3490; J7512; J7614; J7620; J7644

== ENCOUNTER 2020-07-21 11:14 | Outpatient (CLI) | payer MEDICAID, SELFPAY ==
[2020-07-21 12:03] LABS: Source Nasal/Nares
[2020-07-21 15:20] LABS: COVID-19 PCR Negative (Negative)
== END 2020-07-21 11:15 | disposition home or self-care (01) ==
LOC: LBO 11:15
PROVIDERS: PCP Family Medicine; Visit Provider Family Medicine
DX: Z20.822 Contact with and (suspected) exposure to COVID-19 (principal)
CPT/HCPCS: 87635

== ENCOUNTER 2020-08-23 12:10 | Outpatient (REF) | payer MEDICAID, SELFPAY ==
[2020-08-23 16:37] LABS: HCT 37.5 % (40.0-50.0); HGB 12.8 g/dL (13.5-17.5); MCH 35.5 pg (27.0-33.0); MCHC 34.1 % (32.0-36.0); MCV 103.9 fL (80-95); MPV 11.5 fL (8.0-11.0); Platelet Count 165 10^3/uL (130-400); RBC 3.61 10^6/uL (4.36-5.78); RDW 15.7 % (11.8-14.1); RDW-SD 59.7 fL
[2020-08-23 17:22] LABS: Albumin 2.4 g/dL (3.4-5.0); BUN 21 mg/dL (7-18); Calcium 8.8 mg/dL (8.5-10.1); Estimated GFR 23.41 (mL/min/1.73m2); Glucose 125 mg/dL (74-106); Total Protein 5.3 g/dL (6.4-8.2)
[2020-08-23 17:23] LABS: ALT 47 U/L (16-63); AST 110 U/L (15-37); Alkaline Phosphatase 181 U/L (46-116); CO2 17.2 mmol/L (21.0-32.0)
[2020-08-23 17:26] LABS: Bilirubin, Total 38.8 mg/dL (0.2-1.0)
[2020-08-23 17:28] LABS: Sodium 135 mmol/L (136-145)
[2020-08-23 17:29] LABS: Anion Gap 18.8 mmol/L (3-11); Chloride 99 mmol/L (98-107)
[2020-08-23 17:49] LABS: Potassium 2.8 mmol/L (3.5-5.1)
[2020-08-25 09:51] LABS: HBs Antibody, Quant <3.1 mIU/mL (See Note); Hepatitis B Surface Ab Negative (See Note)
[2020-08-25 11:16] LABS: Hep A Total Ab w Rflx IgM Negative (Negative)
== END 2020-08-23 12:11 | disposition home or self-care (01) ==
LOC: NCHCN 12:10
PROVIDERS: PCP Family Medicine; Visit Provider Family Medicine
DX: K70.10 Alcoholic hepatitis without ascites (principal)
CPT/HCPCS: 80053; 85027; 86706; 86709

== ENCOUNTER 2020-09-16 12:29 | Outpatient (CLI) | payer MEDICAID, SELFPAY ==
[2020-09-16 13:18] LABS: Ammonia 84 umol/L (11-32)
[2020-09-16 13:30] LABS: ALT 31 U/L (16-63); Albumin 2.7 g/dL (3.4-5.0); Anion Gap 14.9 mmol/L (3-11); BUN 42 mg/dL (7-18); CO2 18.1 mmol/L (21.0-32.0); Calcium 9.3 mg/dL (8.5-10.1); Chloride 97 mmol/L (98-107); Estimated GFR 12.98 (mL/min/1.73m2); Glucose 104 mg/dL (74-106); Potassium 4.2 mmol/L (3.5-5.1); Sodium 130 mmol/L (136-145)
[2020-09-16 13:35] LABS: INR 1.6 (0.9-1.1); Prothrombin Time 16.4 sec (9.3-11.0)
[2020-09-16 14:02] LABS: Total Protein 5.4 g/dL (6.4-8.2)
[2020-09-16 14:28] LABS: AST 87 U/L (15-37); Alkaline Phosphatase 193 U/L (46-116)
[2020-09-16 14:30] LABS: Bilirubin, Total 45.2 mg/dL (0.2-1.0)
== END 2020-09-16 12:30 | disposition home or self-care (01) ==
PROVIDERS: PCP Family Medicine; Visit Provider Family Medicine
DX: K70.31 Alcoholic cirrhosis of liver with ascites (principal); K76.7 Hepatorenal syndrome
CPT/HCPCS: 36415; 80053; 82140; 85610